=== PATIENT | male | born 1940 | race Caucasian/White ===

== ENCOUNTER 2016-10-05 10:16 | Inpatient (IN) | payer MEDICARE ==
[~2016-10-05] VITALS: Ht 167.6 cm; Wt 64.3 kg
[2016-10-05] VITALS (9 sets, daily range): BP systolic 120–146; BP diastolic 58–99; PULSE 66–97; RESP 18–25; O2SAT 92–94
[~2016-10-05 10:16] MED LIST: ADV250INH IH; ALBU18HF INH; ALBU2.5V4 NEB; Diltiazem Hcl PO; FUR20 PO; LEVO500T79 PO; Metoprolol Tartrate PO; POTA10TA14 PO; TAMS0.4C98 PO; TIOT18CA3 IH; WARF5TAB PO
--- NOTE | 2016-10-05 10:46 | ED.REPORT ---
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 Patient was seen by his PCP yesterday for symptoms, and reports that he is unable to walk today. He states that symptoms originated in his feet, and have spread up his legs and into his arms and hands, with numbness of the hands bilaterally. Patient denies shortness of breath, and visual disturbances. He also mentions a foreign body sensation in his throat. Nursing Notes Stated Complaint: NEAR SYNCOPE, AORTIC STENOSIS Chief Complaint: General Complaint Nursing Notes Reviewed: Yes Allergies: Coded Allergies: No Known Allergies (Verified Allergy, Unknown, 10/05/16) Scheduled ([Diltiazem Hcl]) 240 MG CAP.ER.24H 240 MG PO BID ([Metoprolol Tartrate]) 50 MG TABLET 50 MG PO BID Digoxin (Digoxin) 125 Mcg Tablet 125 MCG PO DAILY Fluticasone/Salmeterol (Advair 250-50 Diskus) 60 Puff/Inh Disk 1 PUFF IH BID Furosemide (Furosemide) 20 Mg Tab 40 MG PO DAILY Levofloxacin (Levofloxacin) 500 Mg Tablet 500 MG PO DAILY Potassium Chloride ER (Klor-Con M10) 10 Meq Tab.er.prt 10 MEQ PO DAILYWM Prednisone (PredniSONE) 20 Mg Tablet 20 MG PO BID Tamsulosin (Flomax) 0.4 Mg Capsule 0.4 MG PO DAILY Tiotropium [place] (Spiriva) 18 Mcg Cap.w.dev 1 PUFF IH DAILY Tiotropium [place] (Spiriva) 18 Mcg Cap.w.dev 18 IH DAILY Warfarin Sodium (Coumadin) 5 Mg Tablet 5 MG PO 17 Scheduled PRN Albuterol Neb Soln (Albuterol Neb Soln) 2.5 Mg/3 Ml Vial.neb 2.5 MG IH PRN For Shortness of Breath Albuterol Sulfate (Ventolin HFA Inhaler) 200 Puff/18 Gm Inhaler 2 PUFF INH Q4 PRN PRN For Wheezing Miscellaneous Medications Olodaterol HCl (Striverdi Respimat) 4 Gm Mist.inhal 2.5 MCG IH General Time Seen by MD: 10:46 Chief Complaint Weakness Hx Obtained From: Patient, Spouse Arrived By: Ambulance Sudden in Onset?: No Onset Occurred: 1 week ago (7-10 days) Symptom Duration: Since onset Associated with: Denies: Shortness of breath, Vision change Pertinent Negative: Pt denies other symptoms Similar Sx Previous: Yes Past Medical History Past Medical History Notes: PCP: Dr Hylton Past Medical History 1. Paroxysmal atrial fibrillation. 2. COPD. 3. Pulmonary hypertension. 4. Tachybrady syndrome. 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 Past Surgical History Lumbar diskectomy Pacemaker Smoking History Former Smoker Social History Alcohol Use: Denies alcohol use Drug Use: Denies drug use Other Social History: Good social support, , Local resident Ambulatory Status Walker Review of Systems Full Review of Systems Constitutional: Denies: Chills, Fever Respiratory: Denies: Shortness of breath Cardiovascular: Denies: Chest pain Neurologic: Reports: Numbness (Hands, bilaterally), Problem walking, Weakness, Denies: Change LOC, Confusion, Headache, Lightheaded, Slurred speech, Syncope , Unable to speak, Vision change Complete sys rev & neg: except as marked. Physical Exam Vital Signs Vital Signs Date Time Temp Pulse Resp B/P Pulse Ox O2 Delivery O2 Flow Rate FiO2 10/05/16 10:25 36.3 66 19 142/74 92 Nasal Cannula 2 10/05/16 10:20 67 19 142/74 92 Room Air 2 Initial VS: Reviewed General/Constitutional: Well-developed, Well-nourished Head / Eyes: Atraumatic, Normocephalic Neck: Supple, Non-tender, Full range of motion Abdomen / GI: Soft, Non-tender, No guarding, No rebound, No distention Skin: Warm, Dry, No cyanosis Psychiatric: Mood/affect normal, Behavior normal, Normal thought content Respiratory / Chest: Breath sounds NL, No respiratory distress, No rales, No rhonchi, No wheezing Cardiovascular: Heart rate NL, Regular rhythm, Heart sounds NL, Cap refill not delayed, Peripheral circulation NL Neurologic: Oriented X3, Speech NL Reflex Abnormality: Positive: Diffusely absent 3/5 strength with toe flexion 4/5 strength with plantar- and dorsiflexion 4/5 strength with knee flexion/extension 4/5 strength with hip flexion 4/5 strength with french translator, biceps, and triceps Parasthesias of feet and hands, symmetrically Interpretation & Diagnostics Lab Results Interpretation Result Diagram: 2/17/17 1132 ECG Interpretation ECG Interpretation: Sinus rhythm, rate 66 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 Will be admitted on IVIG. Discussed with neurology. We will go to ICU. Source of Hx: Old records Time of Eval: 11:08 Re-Evaluation/Progress Note: Completed physical examination and updated patient on the plan of care. Consultation #1: Referral / Consult Name: Nany Reilly MD Consulted With: Neurology Call Returned at: 11:23 Note: Discussed patient case with Dr. Reilly, Neurology. Get records. Start 0.4mg/kg IVIG, Gamunex. Cervical, thoracic, and lumbar MRI with and without contrast. FVC/nif q shift. Consultation #2: Referral / Consult Name: Marshall Bernard MD Consulted With: Hospitalist Call Returned at: 11:40 Intermission Coordinator: Agrees with plan Note: will admit Consultation #3: Referral / Consult Name: Elvis Hylton MD Consulted With: Primary care physician Call Returned at: 11:51 Counseled Regarding: Diagnosis, Lab results, Need for admission Discharge & Departure Primary Impression: CIDP (chronic inflammatory demyelinating polyneuropathy) Disposition: ADMITTED TO HOSPITAL Discharge Condition All VS Reviewed: Yes Condition: Stable Referrals: Elvis Hylton MD (PCP) Crit Care Except Billable Proc Time Spent: 30-74 minutes Services Performed: Patient management by me, Time spent at bedside, Reviewing test results Critical Care Notes: See MDM Scribe Attestation Portions of this note were transcribed by Solis Wheeler. I, Dr. De La Torre, personally performed the history, physical exam and medical decision-making; I reviewed and confirmed the accuracy of the information in the transcribed note. Signed by: Macey Schaeffer, 10/05/2016 and 11:51 copies to: Elvis Hylton MD, Timothy S DO Oct 05, 2016 10:46 SOLIS WHEELER Oct 05, 2016 11:02
[2016-10-05 11:52] LABS: Mean Corpuscular Hemoglobin 29.2 pg (27.0-35.0); Platelet Count 303 bil/L (150-400)
[2016-10-05] MEDS ORDERED: Ondansetron 2 mg/mL 2 mL Inj IVPUSH PRN ×2 (11:55→15:00)
[2016-10-05] MEDS ORDERED: Alum-Mag Hydrox-Simeth 30 mL Suspension PO PRN ×2 (11:55→15:00)
[2016-10-05 12:01] LABS: INR 2.13 ratio
[2016-10-05] MEDS ORDERED: IVIG per Pharmacy (Initial) XX ONE (12:10)
[2016-10-05 12:13] LABS: Magnesium 2.3 mg/dL (1.6-2.6)
[2016-10-05] MEDS ORDERED: OLOD4MIS2 IH (12:51)
[2016-10-05] MEDS ORDERED: TIOT18CA3 IH (12:51)
[2016-10-05] MEDS ORDERED: PRE20 PO (12:54)
[2016-10-05] MEDS ORDERED: DIGO125T73 PO (12:54)
--- NOTE | 2016-10-05 13:18 | DRSVH ---
PROCEDURE: X-RAY CHEST ONE VIEW, PORTABLE ([id number]) INDICATIONS: generalized weakness TECHNIQUE: One view of the chest was acquired. COMPARISON: [facility], CR, XR CHEST 2VW, 08/23/2016, 11:54. FINDINGS: Surgical changes and devices: Dual-lead cardiac pacer Lungs and pleura: No pleural effusions or pneumothorax. Lungs are clear. Scattered scarring/atelec tasis with unchanged appearance Mediastinum: Mediastinal contours appear normal. Heart size is normal. Bones and chest wall: No suspicious bony lesions. Overlying soft tissues appear unremarkable. Machine Whitener silvina left clavicle fracture IMPRESSION: No acute disease Dictated by: James Ware M.D. on 10/05/2016 at 13:15 Approved by: James Ware M.D. on 10/05/2016 at 13:16
[2016-10-05 13:31] LABS: BASOPHILS % (AUTO) 0 % (0-3); EOSINOPHILS % (AUTO) 0 % (0-5); MONOCYTES % (AUTO) 6 % (4-12); NEUTROPHILS % (AUTO) 85 % (40-74)
[2016-10-05] MEDS: GAMUNEX C IV SCH ×2 (14:41)
[2016-10-05] MEDS ORDERED: Albuterol 1.25 mg/3 mL Inhalation Solution NEB PRN (15:00)
[2016-10-05] MEDS ORDERED: Polyethylene Glycol (PEG) 17 Gm Powder PO PRN (15:00)
--- NOTE | 2016-10-05 15:02 | CONS ---
[address] [address] CONSULTATION REPORT PATIENT: YASEMIN ZAFAR : 1940 MR#: [id number] ADMIT: 10/05/2016 JOB ID: [id number] DATE OF SERVICE: 10/05/2016 NEUROLOGICAL CONSULTATION: REQUESTING PHYSICIAN: Dr. Prerna Johnson and Dr. 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 HISTORY OF PRESENT ILLNESS: The patient is a 76-year-old gentleman with history of Guillain-Slinger two years ago which began with ascending numbness and weakness eventually affecting his arms and legs. Today the gentleman presents to the emergency department with acute onset of weakness, unable to walk following a 3-day history of rapidly ascending numbness and weakness. He reports that he had an upper respiratory tract infection prior to the onset of symptoms two years ago and over the last several weeks he has been struggling with a respiratory tract infection. He also has COPD and is followed closely by his primary care physician, Dr. Ajay Hylton, who initially thought the patient's virus was responsible for his symptoms. He reports that he has been on oral prednisone for COPD and as of yesterday possibly CIDP. This morning when he found he was unable to walk, he told his to call 911 and he was transported to [facility] emergency department. I was contacted by Dr. De La Torre for recommendations regarding etiology and treatment of his symptoms. Dr. De La Torre and the patient both inform me that he was transferred to [facility] two years ago diagnosed with Guillain-Slinger syndrome. The patient recalls receiving five days of IVIG and having almost complete resolution of symptoms at the time of discharge. He did report residual numbness and tingling in his fingers and toes. He reports that he tolerated the IVIG without any difficulty. He has had no recurrence of symptoms until now. The patient advises me that several things are different than the last time event; although the ascension is similar, he did not have speech problems or hoarseness which he has now and he also did not experience as profound of weakness. Chest x-ray done today did not show any acute changes or evidence to suggest pneumonia. The patient denies any diarrheal illness. He was able to urinate this morning but has not urinated since. He does not feel the urge to do so. He advises me that he is on home O2 at 2 L nasal cannula, which is the current amount he is receiving now. He does not feel as if he has any additional respiratory distress over his baseline. PAST MEDICAL HISTORY: 1. Atrial fibrillation, on chronic warfarin followed by Dr. Cuellar in [place]. 2. COPD. 3. Pulmonary hypertension. 4. Tachybrady syndrome. 5. History of Guillain-Slinger. 6. Hypertension. PAST SURGICAL HISTORY: 1. Pacemaker. 2. Lumbar diskectomy. 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 Lives with his and is a former smoker. He admits to moderate alcohol. He has lived in the area his entire life. FAMILY HISTORY: The patient reports that his father with cancer of unknown type. Mother had no known illnesses and his siblings have no neurologic disorders that he is aware of. HOME MEDICATIONS: 1. Diltiazem. 2. Metoprolol. 3. Digoxin. 4. Advair. 5. Furosemide. 6. Levofloxacin. 7. Potassium. 8. Prednisone 20 mg two times daily. 9. Flomax. 10. Spiriva. 11. Warfarin. 12. Nebulizers for shortness of breath. 13. Albuterol for shortness of breath. DRUG ALLERGIES: No known drug allergies. REVIEW OF SYSTEMS: As per the history of present illness. All other systems were reviewed and reported as negative. PHYSICAL EXAMINATION: The patient is a pleasant and cooperative well-groomed gentleman in no apparent distress resting comfortably in his bed. Vital signs: Blood pressure mildly elevated 144/73, heart rate 72, pulse oximetry 94% on 2 L nasal cannula. He is afebrile. Head: Normocephalic, atraumatic. No evidence of carotid bruits. Lungs: Clear to auscultation. Cardiac: Regular rate and rhythm. S1, S2 present. Extremities: No edema or lesions noted in the lower extremities. Skin and pedal pulses appear to be intact. NEUROLOGIC EXAMINATION: The patient is alert and oriented with language and speech intact and fluent with exception of with some nasal quality. Mood is euthymic. Cranial nerves: Pupils equally reactive to light and accommodation with extraocular movements intact. No ptosis seen. Upward gaze of 30 seconds does not elicit ptosis. No diplopia on any gaze version. Visual jefferson appear to be intact bilaterally. No facial asymmetry. Sensation intact to touch bilaterally. Tongue midline. Palate raises symmetrically. SCM and shoulder shrug, as well as hearing appear to be intact bilaterally. Motor strength: Proximal motor strength intact. Distal strength shows 4-5 dorsiflexor and lobsterman weakness. 10 sec leg raise without drift, upper limited by IV and BP cuff. Tone: Intact upper and lower extremities. Deep tendon reflexes: Not elicited. Plantar reflex mute. Sensation: Diminished pinprick to the dorsum of the foot bilaterally. Diminished vibratory sensation to approximately 3 seconds in the lower extremities. Upper extremities appear to be intact but diminished pinprick in the tips of the fingers. Coordination: Intact finger to nose, heel to claudio, and rapid alternating movement. Gait: Not requested due to weakness and falls. LABORATORY STUDIES: Hemoglobin and hematocrit 11.9/35.9, white count elevated 18.2. CMP: Glucose elevated 184, BNP 544. Please see chart for additional laboratory studies. RADIOLOGIC STUDIES: Chest x-ray as above. ASSESSMENT AND RECOMMENDATIONS: The patient is a 76-year-old gentleman with subacute onset of weakness and ascending paresthesias with history of Guillain-Slinger syndrome two years ago with incomplete resolution of symptoms. The patient's neurologic examination shows distal weakness and sensory loss. The patient reports speech problems. There are no clinical findings to suggest myasthenia gravis. He does not have a family history of neuromuscular disease or symptoms. His symptoms and presentation are more consistent with CIDP. It is possible that the patient has a second occurrence of Guillain-Slinger but more likely that he is experiencing CIDP. However, I cannot eliminate the possibility of worsening presentation of residual GBS symptoms due to another cause. He has elevated glucose and white count likely secondary to prednisone. Myelocytes are present. He is also experiencing a viral infection by his report. I recommend monitoring the patient closely for progression of ascending weakness given his speech problems with concern for respiratory failure. The patient should be admitted to the ICU for close surveillance given the concern of impending respiratory failure with speech involvement and given the concern of GBS. I recommended Gamunex IVIG 0.4 g/kgper day over 4-5 days. If the patient does improve enough to ambulate, he can be discharged home with home IVIG. If he fails to resolve symptoms or if symptoms progress, transfer to a center that can perform plasma exchange is recommended. It appears that he did respond to IVIG during the last episode. Certitude of diagnosis will require observation and electrophysiologic studies as an outpatient. It will be helpful to have the records from his last hospitalization at [facility] to review from his hospitalization two years ago. Those records should be requested along with all laboratory studies, the results of his LP and in imaging studies. Unfortunately imaging studies with MRI are prohibited due to his pacemaker. Recommend PT/ OT and correction of hyperglycemia. I will continue to follow with you. Thank you for this consultation. SARAY
[2016-10-05 15:19] LABS: APPEARANCE,URINE HAZY (CLEAR,HAZY); COLOR,URINE STRAW (YELLOW); OCCULT BLOOD,URINE NEGATIVE (NEGATIVE); UROBILINOGEN,URINE NORMAL (NORMAL)
--- NOTE | 2016-10-05 15:39 | NUR ---
Admit to CCU Admit at 1430. AAOx4. Tolerating IVIG. BLEs weak L>R. Baseline numbness to feet and tips of fingers. SpO2 92-95% on 2L NC, uses 2L NC at home. Afebrile. Paced 70s-80s.
[2016-10-05] MEDS: Albuterol-Ipratropium 3 mL Inhalation Solution NEB SCH ×2 (16:20→20:30)
--- NOTE | 2016-10-05 16:29 | PCM.HPMED ---
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 Patient reports that he has been getting progressively weaker, and is now unable to walk today. He also mentions a foreign body sensation in his throat. He denies headache, visual disturbances, confusion, lightheadedness, fainting, or facial droop. He reports he had a recent upper respiratory tract infection over the last few weeks. He also reports he has chronic dyspnea on exertion associated with his COPD, which has been getting worse over the last month, with coughing and wheezing. He states he has been too weak to cough up sputum. His dyspnea has been worsening to the point that he could barely walk across a room without becoming significantly short of breath. He is unsure if he has orthopnea but states he sleeps in a recliner. He does report paroxysmal nocturnal dyspnea. He denies lower extremity edema. In the ED, BP was 144/73, O2 was 94 on 2L NC. WBC 18.2, Hb 11.9, glucose 184, BNP 540. He was started on IVIG per Dr. Reilly. He was recommended to have a cervical, thoracic, and lumbar MRI but was unable to do so because of his pacemaker. Review of Systems: Comprehensive review of systems conducted and was negative except for the pertinent positives listed above. Allergies Coded Allergies: No Known Allergies (Verified Allergy, Unknown, 10/05/16) Home Medications Albuterol neb and inhaler Digoxin 125 mcg daily Advair inhaler Furosemide 40 mg daily Olodaterol inhaler Potassium chloride 10 meq daily Prednosione 20 mg BID Tamsulosin 0.4 mg daily Spiriva inhaler Warfarin 4 mg daily Diltiazem 240 mg BID Metoprolol tartrate 50 mg BID PMH 1. Paroxysmal atrial fibrillation. 2. COPD. 3. Pulmonary hypertension. 4. Tachy-gio syndrome. 5. History of Guillain-Paradox 6. Hypertension Surgical History Lumbar diskectomy Pacemaker Family History Father - of unknown cancer No other relevant family history Social History Hx Alcohol Use: Yes (occasionally/social) Hx Substance Use: No Hx Tobacco Use: Yes Smoking Status: Former Smoker Exam Vital Signs Vital Sign - Last Date Time Temp Pulse Resp B/P Pulse Ox O2 Delivery O2 Flow Rate FiO2 10/05/16 13:03 36.4 72 18 144/73 94 Nasal Cannula 2.00 Exam General: Alert, Oriented X3, Cooperative, Appears to be mildly short of breath. Generalized weakness. Head: Normocephalic, atraumatic. External ears normal. Eyes: PERRLA, EOMI. Anicteric sclerae. Mouth: Mouth Normal, Mucous Membranes Moist/[place] Neck: Neck supple with full range of motion. Chest & Lungs: Clear to auscultation bilaterally with no crackles, wheezes, or rhonchi. Cardiovascular: Regular Rate/Rhythm, Normal S1, Normal S2, No Murmurs/Rubs/ Gallops Abdomen: Non-tender, Non-distended, No masses, Normoactive bowel tones, Soft Musculoskeletal: Normal Range of Motion Extremities: No cyanosis/clubbing/edema bilaterally Neurological: Normal Speech. Cranial Nerves 2-12 Intact. Proximal strength normal. Distal hand weakness with patent examiner strength, wrist flexion/extension. Distal lower extremity weakness with decreased foot dorsiflexion and plantarflexion bilaterally. Diminished sensation on bilateral hands up to wrist and feet up to ankles symmetrically. Patellar reflex absent bilaterally. 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 Admitted for chronic inflammatory demyelinating polyneuropathy and COPD exacerbation. 1. Chronic inflammatory demyelinating polyneuropathy. Present on admission. Active - Pt with a history of GBS 2 years ago presents with weakness and paresthesias onset over 2 weeks. He has distal weakness and paresthesias in upper and lower extremities. 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 He previously responded well to IVIG without any problems, so we will repeat his treatment. Per Dr. Reilly's recommendations, we will monitor closely for signs of respiratory failure, as well as autonomic problems such as fluctuations in blood pressure and heart rate. MRI was indicated but unable to perform due to pacemaker. - Dr. Reilly of Neurology has been consulted. We appreciate her input. - Gamunex 0.4 g/kg per day over 4-5 days. - Will check post void residual with bladder scan to rule out bladder involvement. - Physical therapy and occupational therapy ordered - Requesting records of prior admit at [facility] 2. COPD exacerbation. Present on admission. Active. - Pt presents with progressive shortness of breath on exertion, coughing, and wheezing. He is on 2L home O2. Currently satting 94 on 2L. CXR showed no acute disease. - Duoneb q6hwa - Albuterol neb q2h PRN - Continue home prednisone 20 mg daily - Hold home inhalers 3. Hyperglycemia, acute. Present on admission. Active. - Glucose 184 on admission. Likely secondary to chronic steroid use. No prior history of diabetes. - A1c ordered - Humalog low dose correctional scale. 4. Leukocytosis, acute. Present on admission. Active. - WBC 18.2 on admission. Likely secondary to steroid use. CXR and UA negative, pt denies fever or chills. - Will continue to monitor at this time. 5. Paroxysmal atrial fibrillation, chronic. - Pt in NSR on EKG. - Continue home digoxin, diltiazem, metoprolol, warfarin 6. Hypertension, chronic - Continue home furosemide and KCl 7. Benign prostatic hypertrophy, chronic. - Continue home tamsulosin 8. Other Chronic Conditions - Pulmonary hypertension. - Tachy-gio syndrome. - History of Guillain-Paradox - Bowel regimen as needed - Antiemetic as needed Disposition: Patient will be monitored for pulmonary or autonomic complications for at least 2 days. If the patient does improve enough to ambulate, he can be discharged home with home IVIG and outpatient workup with neurology. If he fails to resolve symptoms or if symptoms progress, we will transfer him to a center that can perform plasma exchange. INPATIENT: Patient is admitted under inpatient status with expected length of stay greater than 2 midnights due to severity of presenting symptoms, risk of adverse event, and complexity of treatment plan. Pain Evaluation: Adequate Pain Control Resuscitation Status: CPR: Attempt Resuscitation Time spent 45 minutes Attending Statement Patient seen and examined with house staff. Agree with all attached documentation. Gideon Sawyer Oct 05, 2016 14:57 Marshall Bernard MD Oct 05, 2016 18:15
--- NOTE | 2016-10-05 17:15 | NUR ---
1500- UPON ARRIVAL TO 2012 BASELINE NIF AND FVC DONE. NIF> -40, FVC 1.5L. PT. ON 1 LPM 94%, , BS COARSE.
[2016-10-06] VITALS (14 sets, daily range): BP systolic 119–155; BP diastolic 59–108; PULSE 60–89; RESP 11–20; O2SAT 91–97
[2016-10-06] MEDS: Diltiazem CD 240 mg ER24 Capsule PO SCH ×3 (01:19→20:11)
[2016-10-06 03:08] LABS: BASOPHILS % (AUTO) 0.2 % (0-3); EOSINOPHILS % (AUTO) 1.4 % (0-5); Mean Corpuscular Hemoglobin 29.1 pg (27.0-35.0); Mean Corpuscular Volume 88.1 fL (81-100); NEUTROPHILS % (AUTO) 73.5 % (40-74); Platelet Count 317 bil/L (150-400)
--- NOTE | 2016-10-06 04:48 | NUR ---
Neuro / comfort No changes in muscle strength during shift. Patient continues to have weak lower extremities with some numbness in the feet and hands. Denies any loss of core strength. Patient able to turn self independently in bed, requesting pillow positioning at times. Patient able to sit at the edge of the bed. Patient remains alert and oriented. Unable to sleep. Complains of discomfort at times but denies offer of Tylenol for most of the shift.
[2016-10-06] MEDS: predniSONE 20 mg Tablet PO SCH ×2 (08:17→20:11)
--- NOTE | 2016-10-06 09:52 | NUR ---
Neuro/pain/speech Continues complaints of tingling & decreased sensation in bilateral hands and feet. Numbness/tingling extending up right leg to mid-thigh. Drift noted in bilateral upper and lower extremities. Leaning to right. Voice hoarse, cough noted with oral intake. ST evaluation ordered. Loose cough, nonproductive. Lungs diminished, coarse on RLL. Right flank pain reported this AM, PRN morphine administered with relief.
[2016-10-06] MEDS: Albuterol-Ipratropium 3 mL Inhalation Solution NEB SCH ×3 (11:22→22:09)
--- NOTE | 2016-10-06 11:24 | NUR ---
Evaluation completed. Please go to "Notes" then click on "Assessments and Notes" (bottom left corner of screen). Then select appropriate discipline tab on top of screen.
--- NOTE | 2016-10-06 12:36 | NUR ---
NUTRITION ASSESSMENT: ASSESS:76 YO male admitted following approximately 2 weeks of progressively worsening weakness in bilateral upper and lower extremities, as well as numbness progressing from his fingertips up to his wrists and from his toes up to his ankles symmetrically. Patient reports that he has been getting progressively weaker, and is now unable to walk today. He also mentions a foreign body sensation in his throat. He denies headache, visual disturbances, confusion, lightheadedness, fainting, or facial droop. He reports he had a recent upper respiratory tract infection over the last few weeks. Pt. admitted with chronic inflammatory demyelinating polyneuropathy and COPD exacerbation. Speech Therapy evaluated patient today and was only able to advance diet to stimulation texture, no liquids. PMHx:Paroxysmal atrial fibrillation, COPD, pulmonary HTN, tachy-gio syndrome, Guillain-[place], HTN. DIET:Stimulation, no liquids. PO intake not yet recorded. LABS: Reviewed. Chloride 92, CO2 35, Glu 114. MEDICATIONS: Reviewed. Lasix, prednisone, lopressor. NUTRITION FOCUSED PHYSICAL ASSESSMENT: GI symptoms / stool: No stool reported.Rupesh: 16. Skin Integrity: No issues reported. ANTHROPOMETRICS: Current Wt: 65.4 kg.BMI: 23.0 kg/m2. 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 2)Inadequate oral intake related to inability to consume sufficient energy, as evidenced by requirement for significantly modified diet texture per ST order. INTERVENTION: 1) Once diet advanced, will add high protein supplements to trays. 2) This patient has a low threshold for intubation. In the event pt. requires intubation over weekend, recommend consider enteral feeding. MONITOR/EVALUATE: Diet advance / tolerance, PO intake, labs, GI/nutrition status. Follow up per high nutrition risk guidelines.
--- NOTE | 2016-10-06 12:51 | NUR ---
Evaluation completed. Please go to "Notes" then click on "Assessments and Notes" (bottom left corner of screen). Then select appropriate discipline tab on top of screen.
--- NOTE | 2016-10-06 14:32 | NUR ---
Social Work: Assessment D&A: See initial assessment. 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 Pt primary insurance is [employer]; PCP is Len Hylton MD. Pt readmit score has not yet been assessed. BIOINFORMATICIST met with pt and at bedside and explained BIOINFORMATICIST role. Pt reports that he is from home with his in a 5th wheel with 4 external steps and 2 internal steps. Pt is "I" at base and does not use DME to ambulate. Pt endorses hx at [facility] and emphatically reports an unwillingness to return to this or any other SNF. Pt intends to d/c home with via POV. Pt drives and does not require a caregiver. No social work needs apparent. Advanced directive info provided. P: Pt likely to d/c home with family via POV. BIOINFORMATICIST will continue to follow for additional needs. INGRID Boone Addendum: 10/06/16 at 1440 by MARY TORRES Amended: Links added.
[2016-10-06] MEDS: GAMUNEX C IV SCH ×2 (16:45)
--- NOTE | 2016-10-06 17:17 | PCM.PNMED ---
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 Patient reports that he has been getting progressively weaker, and is now unable to walk today. He also mentions a foreign body sensation in his throat. He denies headache, visual disturbances, confusion, lightheadedness, fainting, or facial droop. He reports he had a recent upper respiratory tract infection over the last few weeks. He also reports he has chronic dyspnea on exertion associated with his COPD, which has been getting worse over the last month, with coughing and wheezing. He states he has been too weak to cough up sputum. His dyspnea has been worsening to the point that he could barely walk across a room without becoming significantly short of breath. He is unsure if he has orthopnea but states he sleeps in a recliner. He does report paroxysmal nocturnal dyspnea. He denies lower extremity edema. Overnight events: Patient had one event of choking or aspirating on water with follow-up regurgitation of water out of his nostrils. An new onset hoarseness. Complains of mild right-sided chest pain Today: Patient seemed weaker than before. His face was markedly hoarse compared the day before. His coordination was diminished from day before with difficulty and [id number] touches. He has slight cough. He remains on 3 L nasal cannula. He denies headache, nausea, vomiting, change in vision, shortness of breath, chest pain, abdominal pain, constipation, diarrhea. Exam Vital Signs Vital Sign - Last Date Time Temp Pulse Resp B/P Pulse Ox O2 Delivery O2 Flow Rate FiO2 10/06/16 11:22 60 16 91 Nasal Cannula 3.00 10/06/16 08:30 155/62 10/06/16 03:01 36.4 Intake and Output 10/05/16 10/05/16 10/06/16 Cumulative From/Thru 15:00 23:00 07:00 10/05/16 10:25 - 10/06/16 06:20 Intake Total 270 ml 300 ml 570 ml Output Total 300 ml 925 ml 1225 ml Balance -30 ml -625 ml -655 ml Intake Oral 300 ml 300 ml IV Total 270 ml 270 ml Output Urine Total 300 ml 925 ml 1225 ml Exam General: Alert, Oriented X3, Cooperative, Appears to be mildly short of breath. Generalized weakness. Head: Normocephalic, atraumatic. External ears normal. Eyes: PERRLA, EOMI. Anicteric sclerae. Mouth: Mouth Normal, Mucous Membranes Moist/[place] Neck: Neck supple with full range of motion. Chest & Lungs: Clear to auscultation bilaterally with no crackles, wheezes, or rhonchi. Cardiovascular: Regular Rate/Rhythm, Normal S1, Normal S2, No Murmurs/Rubs/ Gallops Abdomen: Non-tender, Non-distended, No masses, Normoactive bowel tones, Soft Musculoskeletal: Normal Range of Motion Extremities: No cyanosis/clubbing/edema bilaterally Neurological: Normal Speech. Cranial Nerves 2-12 Intact. Proximal strength normal. Distal hand weakness with pai gow dealer strength, wrist flexion/extension. Distal lower extremity weakness with decreased foot dorsiflexion and plantarflexion bilaterally. Diminished sensation on bilateral hands up to wrist and feet up to ankles symmetrically. Patellar reflex absent bilaterally. 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 Admitted for chronic inflammatory demyelinating polyneuropathy and COPD exacerbation. 1. Chronic inflammatory demyelinating polyneuropathy. Present on admission. Active - Pt with a history of GBS 2 years ago presents with weakness and paresthesias onset over 2 weeks. He has distal weakness and paresthesias in upper and lower extremities. 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 He previously responded well to IVIG without any problems, so we will repeat his treatment. Per Dr. Reilly's recommendations, we will monitor closely for signs of respiratory failure, as well as autonomic problems such as fluctuations in blood pressure and heart rate. MRI was indicated but unable to perform due to pacemaker. - Will check post void residual with bladder scan to rule out bladder involvement. - Physical therapy and occupational therapy ordered - Requesting records of prior admit at [facility] - Dr. Reilly of Neurology has been consulted. We appreciate her input. - Gamunex 0.4 g/kg per day over 4-5 days. (1st dose given 10/05) - Speech evaluation noted - patient is at moderate aspiration risk with vocal cord weakening and decreased cough ability. Diet changed to crushed food and ice chips. 2. COPD exacerbation. Present on admission. Active. - Pt presents with progressive shortness of breath on exertion, coughing, and wheezing. He is on 2L home O2. Currently satting 94 on 2L. CXR showed no acute disease. - Duoneb q6hwa - Albuterol neb q2h PRN - Continue home prednisone 20 mg daily - Hold home inhalers 3. Hyperglycemia, acute. Present on admission. Active. - Glucose 184 on admission. Likely secondary to chronic steroid use. No prior history of diabetes. - A1c - Humalog low dose correctional scale. 4. Leukocytosis, acute. Present on admission. Active. - WBC 18.2 on admission. Likely secondary to steroid use. CXR and UA negative, pt denies fever or chills. - Will continue to monitor at this time. 5. Paroxysmal atrial fibrillation, chronic. - Pt in NSR on EKG. - Continue home digoxin, diltiazem, metoprolol, warfarin 6. Hypertension, chronic - Continue home furosemide and KCl 7. Benign prostatic hypertrophy, chronic. - Continue home tamsulosin 8. Other Chronic Conditions - Pulmonary hypertension. - Tachy-gio syndrome. - History of Guillain-[place] - Bowel regimen as needed - Antiemetic as needed Disposition: Patient will be monitored for pulmonary or autonomic complications for at least 2 days. If the patient does improve enough to ambulate, he can be discharged home with home IVIG and outpatient workup with neurology. If he fails to resolve symptoms or if symptoms progress, we will transfer him to a center that can perform plasma exchange. INPATIENT: Patient is admitted under inpatient status with expected length of stay greater than 2 midnights due to severity of presenting symptoms, risk of adverse event, and complexity of treatment plan. Pain Evaluation: Adequate Pain Control Resuscitation Status: CPR: Attempt Resuscitation Time spent 30 min Attending Statement Patient seen and examined with house staff. Agree with all attached documentation. JAKE LUQUE DO Oct 06, 2016 11:35 Marshall Bernard MD Oct 07, 2016 07:35
--- NOTE | 2016-10-06 18:13 | PCM.CONPHA ---
Subjective Date of Service: Oct 06, 2016 Weakness, numbness, shortness of breath Reason for Pharmacy Consult: Anticoagulation Management Objective Vital Signs Date Time Temp Pulse Resp B/P Pulse Ox O2 Delivery O2 Flow Rate FiO2 10/06/16 17:25 36.4 77 14 130/63 96 Nasal Cannula 3.00 10/06/16 17:10 36.4 79 15 128/59 95 Nasal Cannula 3.00 10/06/16 16:55 36.5 74 18 125/63 94 Nasal Cannula 3.00 10/06/16 16:40 36.5 70 16 119/65 95 Nasal Cannula 3.00 10/06/16 16:26 73 16 97 Nasal Cannula 3.00 10/06/16 16:13 Supplement Oxygen 10/06/16 16:13 67 10/06/16 16:11 36.5 84 19 119/71 93 Nasal Cannula 3.00 10/06/16 12:06 36.3 69 20 119/60 93 Nasal Cannula 10/06/16 12:04 Supplement Oxygen 10/06/16 11:22 60 16 91 Nasal Cannula 3.00 10/06/16 08:30 67 18 155/62 93 Nasal Cannula 4.00 10/06/16 08:29 Supplement Oxygen 10/06/16 08:17 67 10/06/16 03:45 Supplement Oxygen 10/06/16 03:01 36.4 72 11 146/68 93 Nasal Cannula 3.00 10/06/16 00:00 Supplement Oxygen 10/05/16 23:15 36.5 97 25 145/69 93 Nasal Cannula 2.00 10/05/16 19:53 36.4 78 18 146/58 93 Nasal Cannula 2.00 10/05/16 19:45 Supplement Oxygen Intake and Output 10/04/16 10/05/16 10/06/16 00:00 00:00 00:00 Intake Total 270 ml Output Total 300 ml Balance -30 ml Weight (Kilograms): 65.400 Height (Feet): 5 Height (Inches): 6.00 Test 10/05/16 11:32 10/05/16 15:06 10/06/16 02:50 Metamyelocytes % 1% (0-0) Myelocytes % 3% (0-0) Prothrombin Time 23.2sec (8.1-12.5) Prothromb Time International Ratio 2.13ratio Magnesium Level 2.3mg/dL (1.6-2.6) Pro-B-Type Natriuretic Peptide 544.6pg/mL (0-486) Hold [place] Top Tube Received (Received) Urine Color Straw (YELLOW) Urine Appearance Hazy (CLEAR,HAZY) Urine pH 7.0 (5.0-8.0) Urine Specific [place] 1.015 (1.003-1.035) Urine Protein Negativemg/dL (NEG,TRACE) Urine Glucose (UA) Negativemg/dL (NEGATIVE) Urine Ketones Negativemg/dL (NEGATIVE) Urine Occult Blood Negative (NEGATIVE) Urine Nitrite Negative (NEGATIVE) Urine Bilirubin Negative (NEGATIVE) Urine Urobilinogen Normalmg/dL (NORMAL) Urine Leukocyte Esterase Negative (NEGATIVE) Urine RBC 0-2/hpf (0-2) Urine WBC 0-5/hpf (0-5) Urine Epithelial Cells Occasional/hpf (NONE-MOD) Urine Crystals None seen (NONE SEEN) Urine Bacteria None/hpf (NONE-FEW) Urine Hyaline Casts None/lpf (NONE) Urine Granular Casts None seen (NONE SEEN) Urine Waxy Casts None seen (NONE SEEN) Urine Red Blood Cell Casts None seen (NONE SEEN) Urine White Blood Cell Casts None seen (NONE SEEN) Urine Mucus None seen (None Seen) Urine Trichomonas None seen (NONE SEEN) Urine Yeast None (NONE SEEN) Urinalysis Comment None Urine Culture Reflexed Not indicated White Blood Count 18.0th/mm3 (3.8-10.1) Red Blood Count 3.88mil/mm3 (4.40-5.80) Hemoglobin 11.3g/dL (13.8-17.2) Hematocrit 34.2% (41.0-50.0) Mean Corpuscular Volume 88.1fL (81-100) Mean Corpuscular Hemoglobin 29.1pg (27.0-35.0) Mean Corpuscular Hemoglobin Concent 33.0% (32.0-37.0) Red Cell Distribution Width 15.3% (12.3-15.4) Platelet Count 317bil/L (150-400) Neutrophils (%) (Auto) 73.5% (40-74) Lymphocytes (%) (Auto) 10.2% (14-46) Monocytes (%) (Auto) 9.0% (4-12) Eosinophils (%) (Auto) 1.4% (0-5) Basophils (%) (Auto) 0.2% (0-3) Sodium Level 137mEq/L (134-144) Potassium Level 3.8mEq/L (3.5-5.2) Chloride Level 92mEq/L (97-108) Carbon Dioxide Level 35mmol/L (18-29) Blood Urea Nitrogen 18mg/dL (8-27) Creatinine 0.79mg/dL (0.76-1.27) Estimat Glomerular Filtration Rate 101mL/min (>59) Glucose Level 114mg/dL (60-99) Calcium Level 8.7mg/dL (8.5-10.1) Total Bilirubin 0.3mg/dL (0.0-1.2) Aspartate Amino Transf (AST/SGOT) 28U/L (0-50) Alanine Aminotransferase (ALT/SGPT) 35U/L (0-44) Alkaline Phosphatase 71U/L (25-160) Total Protein 6.9g/dL (6.4-8.4) Albumin 3.4g/dL (3.4-5.0) Assessment/Plan Assessment/Plan Warfarin per Rx Indication: A-Fib Goal 2-3; Yesterday's INR: 2.13; No dose given; Restarted tonight: 5mg given ( Confirmed with pt's home dose) Daily INR ordered Tex Moreno PharmD Oct 06, 2016 18:13
--- NOTE | 2016-10-06 19:46 | PROG NOTE ---
[address] [address] PROGRESS NOTE PATIENT: YASEMIN ZAFAR : 1940 MR#: [id number] ADMIT: 10/05/2016 JOB ID: [id number] DATE: 10/06/2016 REQUESTING PHYSICIAN: Dr. Sawyer CLINICAL HISTORY: The patient is a 76-year-old gentleman with history of Guillain-[place] and recurrence of symptoms beginning earlier this week. The patient continues to have distal weakness which has not improved with one dose of IVIG. He tolerated the medications without side effects or problems. 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 The patient continues to have bulbar difficulty including swallowing problems noted by speech therapy. His reports that his speech is not at baseline. She does confirm that speech problems were present with pneumonia previously. She states that he has been on high-dose steroids over the last six weeks with presumed upper respiratory tract infection versus COPD exacerbation. He reports no worsening of breathing problems today. Notes from [place] have not yet been received. He reports no new symptoms. REVIEW OF SYSTEMS: As per the history of present illness. No new complaints. MEDICATIONS: 1. Gamunex IVIG 0.4 g/kg date 2 not yet initiated. 2. Digoxin. 3. Lasix. 4. Prednisone 20 mg two times daily. 5. Tamsulosin. 6. Morphine p.r.n. pain. 7. Potassium. 8. Diltiazem. 9. Metoprolol, 10. Albuterol p.r.n. 11. Acetaminophen p.r.n. PHYSICAL EXAMINATION: Temperature 36.3, blood pressure 119/60, pulse oximetry 93% on nasal cannula oxygen 3 L. The patient is alert and oriented, with language and speech intact and fluent, but mildly nasal. Difficulty with enunciating consonants. Head: Normocephalic, atraumatic. No evidence of carotid bruits. Lungs: The patient has scattered rhonchi throughout. Cardiac: Regular rate and rhythm. No edema in the lower extremities. SCDs in place. Neurologic: Pupils equally reactive to light and accommodation. Extraocular movements intact. Upward gaze does not elicit ptosis nor diplopia. No facial asymmetry. Tongue midline. Palate raises symmetrically. SCM and shoulder shrug, as well as hearing, appear to be intact bilaterally. Motor: Proximal motor strength is 4/5 in the upper extremities, including business unit manager. Lower extremity motor strength: Slight drift on right with straight leg raise. Deep tendon reflexes absent throughout, with plantar reflex mute. Sensation: Intact in the upper extremities. Pinprick diminished to the dorsum of the foot bilaterally. Coordination: Intact when weakness is taken into consideration in the upper extremities. Intact in the lower extremities. Gait: Deferred due to weakness. LABORATORY STUDIES: Please see chart for detail. Hemoglobin and hematocrit low at 11.3/34.1. WBC is 18. Low chloride. Elevated glucose known at 114. UA negative. IMPRESSION: The patient is a 76-year-old gentleman with subacute onset of weakness and inability to walk with examination today showing increased proximal upper extremity weakness and increased difficulty swallowing. Lower extremity strength appears somewhat improved. 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 Proximal motor involvement and history is more consistent with CIDP. I will request myasthenia labs given the bulbar involvement, however it is noted by his Ina and in the chart notes that the patient did have bulbar involvement in previous episodes of upper respiratory distress. Myasthenia gravis could have been triggered by antibiotics if present. If myasthenia were present, IVIG should also be expected to provide treatment. I will also request SPEP for paraprotein which if present would suggest a lymphoproliferative disorder. I will continue to follow with you. Please call if needed. [facility]UVANCE HEALTHDebbie
[2016-10-07] VITALS (8 sets, daily range): BP systolic 123–149; BP diastolic 62–73; PULSE 67–79; RESP 16–24; O2SAT 93–96
[2016-10-07 03:25] LABS: BASOPHILS % (AUTO) 0.2 % (0-3); EOSINOPHILS % (AUTO) 0.3 % (0-5); MONOCYTES % (AUTO) 6.3 % (4-12); Mean Corpuscular Hemoglobin 29.4 pg (27.0-35.0); Mean Corpuscular Volume 86.9 fL (81-100); NEUTROPHILS % (AUTO) 84.3 % (40-74); Platelet Count 331 bil/L (150-400)
[2016-10-07 03:42] LABS: INR 1.6 ratio
[2016-10-07 03:48] LABS: Magnesium 2.3 mg/dL (1.6-2.6); Phosphorus 3.4 mg/dL (2.5-4.9)
--- NOTE | 2016-10-07 06:36 | NUR ---
Neuro / Patient continues to have decreased sensation and tingling in hands and lower extremities. Patient is having an increasingly difficult time with his fine motor skills and coordination. Call light is switched out for the round, soft one so he can continue to use it. Speech more difficult to understand. Patient given his pills with applesauce and no coughing is noted. Patient requiring more assistance with bed mobility. MD updated on patient condition. Patient unable to void per urinal. Bladder scan shows 500ml. MD notified and order received to place campos.
[2016-10-07] MEDS: predniSONE 20 mg Tablet PO SCH ×2 (08:02→19:31)
[2016-10-07] MEDS: Diltiazem CD 240 mg ER24 Capsule PO SCH ×2 (08:02→19:31)
[2016-10-07] MEDS: Albuterol-Ipratropium 3 mL Inhalation Solution NEB SCH ×4 (08:13→20:19)
--- NOTE | 2016-10-07 08:43 | PCM.PNMED ---
Subjective Date of Service Oct 07, 2016 Subjective He feels weaker in his upper arms and upper legs today. His voice is a little more hoarse. His nephew is greater than -40. He denies any shortness of breath or choking. No abdominal pain. Exam Vital Signs Vital Sign - Last Date Time Temp Pulse Resp B/P Pulse Ox O2 Delivery O2 Flow Rate FiO2 10/07/16 08:26 Supplement Oxygen 10/07/16 08:15 70 24 95 4.00 10/07/16 07:34 35.7 142/73 Intake and Output 10/06/16 10/06/16 10/07/16 Cumulative From/Thru 15:00 23:00 07:00 10/05/16 10:25 - 10/07/16 06:34 Intake Total 300 ml 870 ml Output Total 1175 ml 775 ml 3175 ml Balance -875 ml -775 ml -2305 ml Intake Oral 300 ml IV Total 300 ml 570 ml Output Urine Total 1175 ml 775 ml 3175 ml Exam Alert oriented 3, slurred speech and slow to speak. Hoarse voice voice. Anicteric sclera, no ptosis. No facial droop Lungs are clear to normal effort. Heart is regular without murmur. Abdomen is soft nontender Extremities are free of edema. The patient has inability left arms of the shoulders bilaterally and inability to lift legs at the thighs bilaterally. This is worse today. 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 Admitted for chronic inflammatory demyelinating polyneuropathy and COPD exacerbation. 1. Chronic inflammatory demyelinating polyneuropathy. Present on admission. Active - Pt with a history of GBS 2 years ago presents with weakness and paresthesias onset over 2 weeks. He has distal weakness and paresthesias in upper and lower extremities. 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 He previously responded well to IVIG without any problems, so we will repeat his treatment. Per Dr. Reilly's recommendations, we will monitor closely for signs of respiratory failure, as well as autonomic problems such as fluctuations in blood pressure and heart rate. MRI was indicated but unable to perform due to pacemaker. - Will check post void residual with bladder scan to rule out bladder involvement. - Physical therapy and occupational therapy ordered - Requesting records of prior admit at [facility] - Dr. Reilly of Neurology has been consulted. We appreciate her input. - Gamunex 0.4 g/kg per day over 4-5 days. (1st dose given 10/05) - Speech evaluation noted - patient is at moderate aspiration risk with vocal cord weakening and decreased cough ability. Diet changed to crushed food and ice chips. Today, Saturday, that the patient feels like the weakness is getting worse in the arms and legs. His speech is also worse but his NIF is adequate. We will continue the IVIG and follow closely. 2. COPD exacerbation. Present on admission. Active. - Pt presents with progressive shortness of breath on exertion, coughing, and wheezing. He is on 2L home O2. Currently satting 94 on 2L. CXR showed no acute disease. - Duoneb q6hwa - Albuterol neb q2h PRN - Continue home prednisone 20 mg daily This is stable. There is no evidence for an upper respiratory infection. 3. Hyperglycemia, acute. Present on admission. Active. - Glucose 184 on admission. Likely secondary to chronic steroid use. No prior history of diabetes. - A1c - Humalog low dose correctional scale. He continues to have hyperglycemia, we will add Lantus at 5 units now and at bedtime. 4. Leukocytosis, acute. Present on admission. Active. - WBC 18.2 on admission. Likely secondary to steroid use. CXR and UA negative, pt denies fever or chills. - Will continue to monitor at this time. 5. Paroxysmal atrial fibrillation, chronic. - Pt in NSR on EKG. - Continue home digoxin, diltiazem, metoprolol, warfarin 6. Hypertension, chronic - Continue home furosemide and KCl 7. Benign prostatic hypertrophy, chronic. - Continue home tamsulosin 8. Other Chronic Conditions - Pulmonary hypertension. - Tachy-gio syndrome. - History of Guillain-[place] - Bowel regimen as needed - Antiemetic as needed Disposition: Patient will be monitored for pulmonary or autonomic complications for at least 2 days. If the patient does improve enough to ambulate, he can be discharged home with home IVIG and outpatient workup with neurology. If he fails to resolve symptoms or if symptoms progress, we will transfer him to a center that can perform plasma exchange. INPATIENT: Patient is admitted under inpatient status with expected length of stay greater than 2 midnights due to severity of presenting symptoms, risk of adverse event, and complexity of treatment plan. Pain Evaluation: Adequate Pain Control Resuscitation Status: CPR: Attempt Resuscitation Time spent 30 minutes Marshall Bernard MD Oct 07, 2016 08:43
[2016-10-07] MEDS ORDERED: Glucose 40% Oral Gel 15 Gm Tube PO PRN (08:45)
[2016-10-07] MEDS: Insulin LISPRO 300 Unit/3 mL Inj SUBQ SCH ×2 (12:54→16:59)
--- NOTE | 2016-10-07 14:15 | NUR ---
Neuro: A/o x3, moves extremities weakly, responds appropriately. Pt has very weak/hoarse voice, failed swallow eval, NPO except for meds. Per PT, strength and fine motor skills are decreased, unable to sit unsupported at EOB. Pt reported feeling like he may need to attempt having a BM, unable to attempt transfer to [facility], refused offered bedpan, says he will try again later. q2h turn, care ongoing.
--- NOTE | 2016-10-07 15:02 | PCM.PHAPRO ---
Progress Date of Service: Oct 07, 2016 Warfarin dosing A/ INR is subtherapeutic at 1.6 today. P/ Give warfarin 5mg today and re-evaluate tomorrow. Sb Gil Oct 07, 2016 15:02
--- NOTE | 2016-10-07 15:23 | NUR ---
1448 Carline Burr RN assumes care
--- NOTE | 2016-10-07 16:02 | NUR ---
EZ signed INGRID Boone
[2016-10-07] MEDS: GAMUNEX C IV SCH ×2 (16:53)
[2016-10-07] MEDS: 0.9% Sodium Chloride 1,000 ML IV SCH (18:37)
[2016-10-07] MEDS ORDERED: Insulin GLARgine 100 Unit/mL Syringe SUBQ SCH ×2 (21:00)
[2016-10-08] VITALS (10 sets, daily range): BP systolic 113–151; BP diastolic 58–74; PULSE 70–81; RESP 12–19; O2SAT 90–99
[2016-10-08 03:07] LABS: INR 2.29 ratio
[2016-10-08] MEDS: 0.9% Sodium Chloride 1,000 ML IV SCH ×2 (03:27→14:32)
--- NOTE | 2016-10-08 05:41 | NUR ---
Neuro Minimal changes to patient overnight. He is switched to 6L OM due to desaturations while asleep. Patient complains of numbness and tingling from above his knee down to his feet and for his hands. Patient lacks fine motor coordination but is able to use the round, soft call light to make his needs known. Voice remains hoarse. NPO.
[2016-10-08] MEDS: Albuterol-Ipratropium 3 mL Inhalation Solution NEB SCH ×4 (07:19→21:00)
[2016-10-08] MEDS: predniSONE 20 mg Tablet PO SCH (09:33)
[2016-10-08] MEDS: Diltiazem CD 240 mg ER24 Capsule PO SCH ×2 (09:33→20:19)
--- NOTE | 2016-10-08 09:45 | NUR ---
NUTRITION FOLLOW UP: ASSESS: 76 YO M admitted to CCU for chronic inflammatory demyelinating polyneuropathy and COPD exacerbation. Pt remains NPO per speech therapy d/t aphonia. Pt has received minimal nutrition X 3 days. Pt continues to get weaker per CCU rounds. Neurology following. PMHx: Paroxysmal atrial fibrillation, COPD, pulmonary HTN, tachy-gio syndrome, Guillain-[place], HTN. DIET: NPO. LABS: Reviewed. (10/07): Cr 0.70, Glu 177, Alb 3.3 MEDICATIONS: Reviewed. Insulin, Coumadin, Lasix. GI: No BM noted. SKIN: No issues reported. 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 2) Inadequate oral intake related to inability to consume sufficient energy, as evidenced by requirement for NPO per ST order.---PERSISTS. INTERVENTION: 1) If diet unable to be advanced in the next 48 hours consider nutrition support. 2) Once diet advanced, will add high protein supplements to trays. MONITOR/EVALUATE: Diet advance/tolerance, PO intake, labs, GI/nutrition status. Follow per high nutrition risk guidelines.
--- NOTE | 2016-10-08 09:58 | NUR ---
Evaluation completed. Please go to "Notes" then click on "Assessments and Notes" (bottom left corner of screen). Then select appropriate discipline tab on top of screen.
--- NOTE | 2016-10-08 12:01 | DRSVH ---
PROCEDURE: X-RAY CHEST ONE VIEW, PORTABLE ([id number]) INDICATIONS: dyspnea TECHNIQUE: One view of the chest was acquired. COMPARISON: [facility], CR, XR CHEST 1VW (PORTABLE), 10/05/2016, 11:49. FINDINGS: Surgical changes and devices: Stable positioning of dual chamber left cardiac pacer. Lungs and pleura: No pleural effusions or pneumothorax. Left basilar airspace opacity present in sm all left pleural effusion. Right lung is clear. No pneumothorax.. Mediastinum: Mediastinal contours appear normal. Heart size is normal. Bones and chest wall: No suspicious bony lesions. Overlying soft tissues appear unremarkable. IMPRESSION: Left basilar aspiration versus pneumonia and small pleural effusion is present. Dictated by: Hussein Varela RR Interpreted: Elizabeth Crystal MD on 10/08/2016 at 12:00 Transcribed by: MARTA on 10/08/2016 at 12:01 Approved by: Elizabeth Cyrstal M.D. on 10/08/2016 at 16:36
--- NOTE | 2016-10-08 16:20 | DRSVH ---
PROCEDURE: CT CERVICAL SPINE WITHOUT CONTRAST ([id number]) INDICATIONS: R/o cervical involvement peripheral weakness TECHNIQUE: Noncontrast 3 mm thick sections acquired from the skull base to the T4 level. Sagittal and coronal r eformats were then constructed. For radiation dose reduction, the following was used: automated exp osure control, adjustment of mA and/or kV according to patient size. COMPARISON: None. FINDINGS: Image quality: Excellent. Bones: No fractures or dislocations. Visualized superior ribs are intact. Multilevel disc desiccat ion is present throughout the cervical spine most prominent at C5-6 and C6-7. There is trace anteroli sthesis of C2 on C3, C7 on T1, T1 on T2, T2-T3 trace retrolisthesis of C4 on C5, C5 on C6. Disc bulges are present at all levels of the cervical spine. Mild spinal stenosis is present at C4-5, mild to moderate C5-6, mild C6-7. Moderate bilateral foraminal narrowing is present at C2-3, severe bilateral C3-4, C4-5, C5-6, C6-7, left greater than right and mild bilateral C7-T1. Significant multi level uncovertebral hypertrophy is present. Soft tissues: Prevertebral soft tissues are normal in thickness. No paravertebral hematomas. No ap ical pneumothoraces. The esophagus appears thickened within the proximal segment. IMPRESSION: 1. Multilevel disc bulges. 2. Multilevel spinal stenosis secondary to disc bulges. 3. Significant multilevel foraminal narrowing secondary to prominent uncovertebral arthropathy. 4. Prominent thickening of the proximal esophagus. This is overall nonspecific and only seen on limit ed view. Recommend interval followup is indicated. Dictated by: Elizabeth Crystal M.D. on 10/08/2016 at 16:12 Approved by: Elizabeth Crystal M.D. on 10/08/2016 at 16:18
[2016-10-08] MEDS: GAMUNEX C IV SCH ×2 (16:23)
--- NOTE | 2016-10-08 18:09 | PCM.DIMED ---
JAKE LUQUE DO 10/08/16 1805: Discharge Instructions Date of Service Oct 08, 2016 Dates of Hospitalization Oct 05, 2016 at 13:14 Discharge Diagnosis Discharge Diagnosis 1. Chronic inflammatory demyelinating polyneuropathy. Present on admission. Active 2. COPD exacerbation. Present on admission. Stable 3. Hyperglycemia, acute. Present on admission. Improving. 4. Leukocytosis, acute. Present on admission. Active and improving. 5. Paroxysmal atrial fibrillation, chronic. 6. Hypertension, chronic 7. Benign prostatic hypertrophy, chronic. 8. Other Chronic Conditions Diet Heart Healthy, Diabetic Patient Instructions You are being transferred to [facility] for continued management of CIDP and for plasma-phoresis. Marshall Bernard MD 10/09/16 0801: Discharge Instructions Attending's Statement Patient seen and examined with house staff. Agree with all attached documentation. JAKE LUQUE DO Oct 08, 2016 18:05 Marshall Bernard MD Oct 09, 2016 08:01
--- NOTE | 2016-10-08 18:59 | NUR ---
Nuero/Pain/CT/IVIG Patient a/o x 4, c/o shoulder pain multiple times, IV Morphine given with good effect. Patient states he has bilat LE numbness from feet up to mid lateral thighs and in hands and up arms. Patient attempts to assist with turns. Patient unable to use soft touch call light, freq rounds, q 1 hr and prn done. Patient down to CT scan this afternoon and MD notified when patient returned to room. Patient npo except for meds. IVIG given patient lilian well without side effects. family at bedside and updated on poc and plans to transfer to [facility] when bed available.
[2016-10-08] MEDS ORDERED: Propofol 10,000 mCg/mL 100 mL Inj ONE (19:10)
[2016-10-08] MEDS ORDERED: Propofol Inj 1,000,000 MCG in IV Premix 1 EACH IV SCH (19:11)
[2016-10-08] MEDS ORDERED: fentaNYL 2,500 mCg/250 mL 2,500 MCG in IV Premix 1 EACH IV PRN (19:11)
--- NOTE | 2016-10-08 19:13 | NUR ---
Intubation: Patient intubated. 14mg of Etomidate given.
[2016-10-08] MEDS ORDERED: fentaNYL-PF 50 mCg/mL 2 mL Inj IVPUSH PRN (19:15)
--- NOTE | 2016-10-08 19:37 | PCM.DC.MED ---
Discharge Summary Date of Service Oct 08, 2016 Dates of Hospitalization Date of Hospital Admission Oct 05, 2016 at 13:14 Date of Discharge: Oct 08, 2016 Providers: Admitting Physician: Marshall Bernard MD Primary Care Physician: Elvis Hylton MD Attending Physician: Marshall Bernard MD Diagnosis at Time of Discharge Diagnosis at Time of Discharge 1. Chronic inflammatory demyelinating polyneuropathy. Present on admission. Active 2. COPD exacerbation. Present on admission. Stable 3. Hyperglycemia, acute. Present on admission. Improving. 4. Leukocytosis, acute. Present on admission. Active and improving. 5. Paroxysmal atrial fibrillation, chronic. 6. Hypertension, chronic 7. Benign prostatic hypertrophy, chronic. 8. 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 Patient reports that he has been getting progressively weaker, and is now unable to walk today. He also mentions a foreign body sensation in his throat. He denies headache, visual disturbances, confusion, lightheadedness, fainting, or facial droop. He reports he had a recent upper respiratory tract infection over the last few weeks. He also reports he has chronic dyspnea on exertion associated with his COPD, which has been getting worse over the last month, with coughing and wheezing. He states he has been too weak to cough up sputum. His dyspnea has been worsening to the point that he could barely walk across a room without becoming significantly short of breath. He is unsure if he has orthopnea but states he sleeps in a recliner. He does report paroxysmal nocturnal dyspnea. He denies lower extremity edema. In the ED, BP was 144/73, O2 was 94 on 2L NC. WBC 18.2, Hb 11.9, glucose 184, BNP 540. He was started on IVIG per Dr. Reilly. He was recommended to have a cervical, thoracic, and lumbar MRI but was unable to do so because of his pacemaker. 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 Admitted for chronic inflammatory demyelinating polyneuropathy and COPD exacerbation. Upon admission patient was standing and only complained of increased paresthesias and neuropathy. Since 4 days patient has experienced progressive weakness and increased scattered paresthesias and neuropathy, which has included proximal hip flexors, shoulder girdle, increased hoarseness and patient is currently talking in a whisper, as well as increased O2 demands from 2 L (home O2) on admission to currently 8 L oxygen mask. Patient's vitals have been stable with respirations of 18 and 68 L O2. Plan is to intubate patient and transfer via ACLS to [facility] ICU. Upon arrival we will reverse patient's warfarin with vitamin K and FFP and evaluated for plasmapheresis. 1. Chronic inflammatory demyelinating polyneuropathy. Present on admission. Active - Pt with a history of GBS 2 years ago presents with weakness and paresthesias onset over 2 weeks. He has distal weakness and paresthesias in upper and lower extremities. 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 He previously responded well to IVIG without any problems, so we will repeat his treatment. Per Dr. Reilly's recommendations, we will monitor closely for signs of respiratory failure, as well as autonomic problems such as fluctuations in blood pressure and heart rate. MRI was indicated but unable to perform due to pacemaker. - Dr. Reilly of Neurology has been consulted and recommended transfer for plasmapheresis. - Gamunex 0.4 g/kg per day over 4-5 days. (1st dose given 10/05) - Speech evaluation changed to nothing by mouth. - Saturday, that the patient feels like the weakness is getting worse in the arms and legs. - Current negative inspiratory force at 28 this is decreased from 2 days prior of 40. 2. COPD exacerbation. Present on admission. Active. - Pt presents with progressive shortness of breath on exertion, coughing, and wheezing. He is on 2L home O2. Currently satting 94 on 2L. CXR showed no acute disease. - Duoneb q6hwa - Albuterol neb q2h PRN - Continue home prednisone 20 mg daily - She is stable. There is no evidence for an upper respiratory infection. 3. Hyperglycemia, acute. Present on admission. Active. - Glucose 184 on admission. Likely secondary to chronic steroid use. No prior history of diabetes. - A1c pending, previous A1c one year ago 6.6. - Humalog low dose correctional scale. He continues to have hyperglycemia, we will add Lantus at 5 units now and at bedtime. 4. Leukocytosis, acute. Present on admission. Active. - WBC 18.2 on admission. Likely secondary to steroid use. CXR and UA negative, pt denies fever or chills. - Will continue to monitor at this time. 5. Paroxysmal atrial fibrillation, chronic. - Pt in NSR on EKG. - Patient has a pacemaker in place. - On warfarin and current INR therapeutic. - Continue home digoxin, diltiazem, metoprolol, 6. Hypertension, chronic - Continue home furosemide and KCl 7. Benign prostatic hypertrophy, chronic. - Continue home tamsulosin 8. Other Chronic Conditions - Pulmonary hypertension. - Tachy-gio syndrome. - History of Guillain-Lathrop - Bowel regimen as needed - Antiemetic as needed Disposition: Patient to be intubated and transferred to [facility] ICU for CIDP continued pulmonary management and plasmapheresis. Exam Vital Signs (Last) Date Time Temp Pulse Resp B/P Pulse Ox O2 Delivery O2 Flow Rate FiO2 10/08/16 16:07 73 18 92 OxyMask 8.00 10/08/16 15:30 37.0 118/68 Exam Alert oriented 3, slurred speech and slow to speak. Hoarse voice voice. Anicteric sclera, no ptosis. No facial droop Lungs are clear to normal effort. Heart is regular without murmur. Abdomen is soft nontender Extremities are free of edema. The patient has inability left arms of the shoulders bilaterally and inability to lift legs at the thighs bilaterally. This is worse today. Test 10/05/16 11:32 10/05/16 15:06 10/07/16 03:10 10/07/16 12:05 Metamyelocytes % 1% (0-0) Myelocytes % 3% (0-0) Pro-B-Type Natriuretic Peptide 544.6pg/mL (0-486) Hold Benson Top Tube Received (Received) Urine Color Straw (YELLOW) Urine Appearance Hazy (CLEAR,HAZY) Urine pH 7.0 (5.0-8.0) Urine Specific [place] 1.015 (1.003-1.035) Urine Protein Negativemg/dL (NEG,TRACE) Urine Glucose (UA) Negativemg/dL (NEGATIVE) Urine Ketones Negativemg/dL (NEGATIVE) Urine Occult Blood Negative (NEGATIVE) Urine Nitrite Negative (NEGATIVE) Urine Bilirubin Negative (NEGATIVE) Urine Urobilinogen Normalmg/dL (NORMAL) Urine Leukocyte Esterase Negative (NEGATIVE) Urine RBC 0-2/hpf (0-2) Urine WBC 0-5/hpf (0-5) Urine Epithelial Cells Occasional/hpf (NONE-MOD) Urine Crystals None seen (NONE SEEN) Urine Bacteria None/hpf (NONE-FEW) Urine Hyaline Casts None/lpf (NONE) Urine Granular Casts None seen (NONE SEEN) Urine Waxy Casts None seen (NONE SEEN) Urine Red Blood Cell Casts None seen (NONE SEEN) Urine White Blood Cell Casts None seen (NONE SEEN) Urine Mucus None seen (None Seen) Urine Trichomonas None seen (NONE SEEN) Urine Yeast None (NONE SEEN) Urinalysis Comment None Urine Culture Reflexed Not indicated White Blood Count 16.7th/mm3 (3.8-10.1) Red Blood Count 4.12mil/mm3 (4.40-5.80) Hemoglobin 12.1g/dL (13.8-17.2) Hematocrit 35.8% (41.0-50.0) Mean Corpuscular Volume 86.9fL (81-100) Mean Corpuscular Hemoglobin 29.4pg (27.0-35.0) Mean Corpuscular Hemoglobin Concent 33.8% (32.0-37.0) Red Cell Distribution Width 15.7% (12.3-15.4) Platelet Count 331bil/L (150-400) Neutrophils (%) (Auto) 84.3% (40-74) Lymphocytes (%) (Auto) 4.4% (14-46) Monocytes (%) (Auto) 6.3% (4-12) Eosinophils (%) (Auto) 0.3% (0-5) Basophils (%) (Auto) 0.2% (0-3) Sodium Level 134mEq/L (134-144) Potassium Level 4.4mEq/L (3.5-5.2) Chloride Level 89mEq/L (97-108) Carbon Dioxide Level 35mmol/L (18-29) Blood Urea Nitrogen 19mg/dL (8-27) Creatinine 0.70mg/dL (0.76-1.27) Estimat Glomerular Filtration Rate 116mL/min (>59) Glucose Level 177mg/dL (60-99) Calcium Level 8.8mg/dL (8.5-10.1) Phosphorus Level 3.4mg/dL (2.5-4.9) Magnesium Level 2.3mg/dL (1.6-2.6) Total Bilirubin 0.4mg/dL (0.0-1.2) Aspartate Amino Transf (AST/SGOT) 32U/L (0-50) Alanine Aminotransferase (ALT/SGPT) 33U/L (0-44) Alkaline Phosphatase 76U/L (25-160) Total Protein 8.2g/dL (6.4-8.4) Test 10/08/16 02:35 Prothrombin Time 24.9sec (8.1-12.5) Prothromb Time International Ratio 2.29ratio Discharge Medications Discharge Medications ([Diltiazem Hcl]) 240 MG CAP.ER.24H 240 MG PO BID Prescribed by: ANGELA MILLER DO ([Metoprolol Tartrate]) 50 MG TABLET 50 MG PO BID Prescribed by: ANGELA MILLER DO Digoxin (Digoxin) 125 Mcg Tablet 125 MCG PO DAILY (Reported) Fluticasone/Salmeterol (Advair 250-50 Diskus) 60 Puff/Inh Disk 1 PUFF IH BID ( Reported) Furosemide (Furosemide) 20 Mg Tab 40 MG PO DAILY (Reported) Olodaterol HCl (Striverdi Respimat) 4 Gm Mist.inhal 2 PUFFS IH DAILY (Reported) Potassium Chloride ER (Klor-Con M10) 10 Meq Tab.er.prt 10 MEQ PO DAILYWM ( Reported) Prednisone (PredniSONE) 20 Mg Tablet 20 MG PO BID (Reported) Tamsulosin (Flomax) 0.4 Mg Capsule 0.4 MG PO DAILY (Reported) Tiotropium [place] (Spiriva) 18 Mcg Cap.w.dev 2 PUFF IH DAILY (Reported) Tiotropium [place] (Spiriva) 18 Mcg Cap.w.dev 18 IH DAILY (Reported) Warfarin Sodium (Coumadin) 5 Mg Tablet 5 MG PO 17 Prescribed by: ANGELA MILLER DO As needed Albuterol Neb Soln (Albuterol Neb Soln) 2.5 Mg/3 Ml Vial.neb 2.5 MG IH PRN For Shortness of Breath (Reported) Albuterol Sulfate (Ventolin HFA Inhaler) 200 Puff/18 Gm Inhaler 2 PUFF INH Q4 PRN PRN For Wheezing (Reported) Followup Plan Disposition: Transfer to [facility]. Patient was intubated for airway protection for transfer. Discharge Diet: Heart Healthy, Diabetic Patient Instructions You are being transferred to [facility] for continued management of CIDP and for plasma-phoresis. Time spent 90 minutes JAKE LUQUE DO Oct 08, 2016 19:26 Marshall Bernard MD Oct 09, 2016 08:11
[2016-10-08] MEDS ORDERED: Piperacillin-Tazo 3.375 Gm Inj 3.375 GM in Dextrose 5% Minibag Plus 50 ML IV ONE (19:50)
[2016-10-08] MEDS ORDERED: 0.9% Sodium Chloride 250 ML ONE (20:10)
--- NOTE | 2016-10-08 20:11 | DRSVH ---
PROCEDURE: X-RAY CHEST ONE VIEW, PORTABLE ([id number]) INDICATIONS: POST INTUBATION to verify ETT placement TECHNIQUE: One view of the chest was acquired. COMPARISON: [facility], CR, XR CHEST 1VW (PORTABLE), 10/08/2016, 11:18. [facility], CR, XR CHEST 1VW (PORTABLE), 10/05/2016, 11:49. FINDINGS: Surgical changes and devices: Endotracheal tube is in normal position. Cardiac pacemaking device and dual chamber leads appear normal.. Lungs and pleura: No pleural effusions or pneumothorax. Lungs are abnormal, with pneumonia present at the left lower lobe that has not definitely worsened from earlier today but was not clearly presen t in the same area behind the left heart 10/05/16. Mediastinum: Mediastinal contours appear normal. Heart size is normal. Bones and chest wall: No suspicious bony lesions. Overlying soft tissues appear unremarkable. IMPRESSION: Definite retrocardiac left lower lobe pneumonia, without worsening from earlier today. E ndotracheal tube in normal position. Dictated by: Chip Pineda M.D. on 10/08/2016 at 20:09 Approved by: Chip Pineda M.D. on 10/08/2016 at 20:10
[2016-10-08] MEDS ORDERED: Chlorhexidine 0.12% 15 mL Oral Solution MT SCH (20:30)
--- NOTE | 2016-10-08 20:47 | ABG ---
DateTimeAnalyzed 20:40:00 -_ pH ____7.475 - 7.350 7.450 pCO2 ___45.6__ -mmHg 35.0 45.0 pO2 ___82.1__ -mmHg 69.0 116 HCO3- ___33.2__ -mmol/L 22.0 26.0 ABE ____8.8__ -mmol/L -2.0 2.0 tHb ___12.1__ -g/dL O2Hb ___94.9__ -% COHb ____1.5__ -% MetHb ____1.0__ -% sO2 ___97.3__ -% 25.0 FIO2 ___60.0__ -% PRVC 18 - PEEP ____7.0__ -cmH2O Set_RR ___18.0__ -b/min Vt __450.0__ -L Drawn By MM - Date/Time Notified____ 20:46:00 -_ Spontaneous_RR ___18.0__ -b/min Oxygen Device 1 VENTILATOR - Notified By MM - Notified Whom RN - B 750 -mmHg tO2 ___16.2__ -Vol% Marshall test N/A -
--- NOTE | 2016-10-08 22:32 | NUR ---
Transfer Report called to [facility] Donna Stevenson. Patient left the floor with transporters at 2220. present during transfer and took patient's watch and dentures with her. No other belongings in the room.
--- NOTE | 2016-10-09 01:05 | PROG NOTE ---
[address] [address] PROGRESS NOTE PATIENT: YASEMIN ZAFAR : 1940 MR#: [id number] ADMIT: 10/05/2016 JOB ID: [id number] DATE: 10/08/2016 REQUESTING PHYSICIAN: Marshall Bernard MD. 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 At the time, the patient had proximal as well as distal weakness and bulbar involvement. Since then, the patient reports no exacerbations of symptoms, but reports he did not completely resolve his symptoms of weakness in the upper extremities and paresthesias in the lower extremities. The patient was readmitted on October 05, 2016, with reproduction of the symptoms seen previously, now with worsening weakness of the lower extremities. He has received four days of 0.4 g/kg IVIG with no improvement of symptoms, and in fact, worsening weakness proximally is noted. He has continued on 40 mg prednisone daily which he was on prior to admission. Continued leukocytosis and hyperglycemia. The patient has worsening respiratory function today per respiratory evaluation. Notes received and reviewed from [facility]. Imaging studies of the cervical and lumbar spine done at [facility] showed degenerative disease but no obvious signs of radiculopathy. Repeat CT of the cervical spine was requested but has not yet been completed. The patient has a pacemaker which limits MRI imaging. An LP was not performed since the patient is on warfarin. The patient is afebrile but does report significant low back pain. He does not report neck pain. REVIEW OF SYSTEMS: As per the history of present illness, dysphagia, hypophonia, proximal and distal weakness. Patient reports difficulty sleeping due to noise in the ICU and pain. MEDICATIONS: Reviewed and noted. Continuing on: 1. Morphine. 2. Digoxin. 3. Furosemide. 4. Prednisone decreased to 20 mg daily. 5. Tamsulosin. 6. Diltiazem. 7. Metoprolol. 8. Potassium. 9. Albuterol. 10. Insulin. 11. Warfarin. 12. IVIG 20 g. This is day four. PHYSICAL EXAMINATION: Vital signs: Blood pressure 141/66, pulse oximetry 92% on 6 L oxygen nasal cannula, pulse 71, temperature afebrile since admission. Cardiac monitoring shows regular rhythm. Lungs: Occasional rhonchi. Cardiac: Regular rate and rhythm. No murmur. Extremities: No rashes or lesions. No edema in the lower extremities. SCDs in place. Neurologic examination: The patient is alert and oriented x3 with language and speech intact and fluent. Pupils are equally reactive to light and accommodation. Extraocular movements intact. Upward gaze for 30 seconds does not elicit ptosis. No facial asymmetry. Tongue midline. Palate raises symmetrically. SCM and shoulder shrug appear to be intact. 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 Lower extremities 3/5 hip flexor strength and dorsiflexor strength. Tone: Intact upper and lower extremities. Deep tendon reflexes absent throughout with plantar reflex mute. Sensation: Diminished pinprick in the arms with hyperalgesia in the fingertips of upper extremities; lower extremities with decreased pinprick to below the knee bilaterally. Coordination and gait not examined due to weakness. LABORATORY STUDIES: Continued lymphocytosis with white count 13.7. Elevated glucose 177. SPEP pending. IMPRESSION: The patient is a 76-year-old gentleman with history of acute inflammatory demyelinating polyneuropathy two years ago with incomplete resolution of symptoms. The patient was admitted with subacute onset of weakness and sensory changes affecting both proximal and distal muscles. He has both proximal and distal weakness suggesting CIDP but cannot rule out recurrent AIDP given apparent bulbar involvement. Despite four days of intravenous immunoglobulin, the patient's symptoms have progressed, now with increasing respiratory distress and increasing proximal weakness. Since he is not responding to both steroids and IVIG, I recommended consideration of transfer to [facility] for plasma exchange. Imaging of the cervical spine is requested given the patient's extreme upper extremity weakness. Although he is complaining of lumbar pain, this would not explain his progressive upper extremity or bulbar involvement. Myasthenia panel and SPEP are still pending. Patient was discussed with Dr. Bernard. SARAY
--- NOTE | 2016-10-09 01:31 | PROCED ---
[address] [address] PROCEDURE NOTE PATIENT: YASEMIN ZAFAR : 1940 MR#: [id number] ADMIT: 10/05/2016 JOB ID: [id number] DATE OF SERVICE: PREOPERATIVE DIAGNOSIS(ES): The patient presents with demyelinating disease, still awake and alert but having significant difficulties breathing, moving secretions and maintaining oxygenation. The patient is being transferred to [facility]. Hospitalist requested intubation. This was discussed by the hospitalist with the family and the son, as well as by myself with the and the son. They agree to proceed. POSTOPERATIVE DIAGNOSIS(ES): SURGEON: Devendra Chacon MD DESCRIPTION OF PROCEDURE: The patient is in the supine, head up position. The patient was pre-oxygenated. Oxygen was 100%. Suction was available. The patient was given 7 cc, 14 mg of etomidate through his IV. This was flushed in. The patient became apneic. He was ventilated with an Ambu bag for a short time, about four breaths. A MAC-3 blade was used to identify the epiglottis and larynx, and a 7.5, long-term tube was placed without difficulty. The cuff was just below the cords. Good air entry was auscultated on both sides. Positive CO2 was noted. The tube was secured by Respiratory Therapy and the ventilator was connected to the patient per the orders from the hospitalist. Thank you for the consultation.
[2016-10-09] MEDS ORDERED: predniSONE 20 mg Tablet PO SCH (08:30)
[2016-12-24] MEDS ORDERED: AMIO200T PO (10:11)
[2016-12-24] MEDS ORDERED: FINA5TAB9 PO (11:34)
[2016-12-24] MEDS ORDERED: OMEP20CA11 PO (11:44)
[2016-12-24] MEDS ORDERED: METF500T4 PO (11:44)
[2016-12-25] MEDS ORDERED: DILT240C9 PO (09:07)
[2016-12-25] MEDS ORDERED: CHOL100045 PO (09:07)
[2016-12-25] MEDS ORDERED: GABA-502 PO (09:07)
[2016-12-25] MEDS ORDERED: respimat IH (09:07)
[2016-12-25] MEDS ORDERED: POLY17PO6 PO (09:07)
[2016-12-25] MEDS ORDERED: DOCU-41 PO (09:07)
[2017-02-04] MEDS ORDERED: CLIN-78 PO (16:59)
== END 2016-10-08 22:20 | disposition short-term general hospital (02) | DRG 73 ==
LOC: SED 10:16 → EDSEX 10:16 → EDBD 10:16 → UNDOADMOB 10:44 → MPC 10:44 → PCC 13:14 → CCU 13:31 → PCC 10-06 16:34 → CCU 10-06 18:13
PROVIDERS: ADMIT Hospitalist; ATTEND Hospitalist
PROC: 5A1935Z Respiratory Ventilation, Less than 24 Consecutive Hours (ICD-10-PCS; principal; 2016-10-08)
PROC: 0BH17EZ Insertion of Endotracheal Airway into Trachea, Via Natural or Artificial Opening (ICD-10-PCS; 2016-10-08)
PROC: 4A033R1 Measurement of Arterial Saturation, Peripheral, Percutaneous Approach (ICD-10-PCS; 2016-10-08)
DX: G61.81 Chronic inflammatory demyelinating polyneuritis (principal); J96.21 Acute and chronic respiratory failure with hypoxia; J44.1 Chronic obstructive pulmonary disease with (acute) exacerbation; Z99.81 Dependence on supplemental oxygen; I48.0 Paroxysmal atrial fibrillation; I10 Essential (primary) hypertension; Z87.891 Personal history of nicotine dependence; I27.2 Other secondary pulmonary hypertension; R73.9 Hyperglycemia, unspecified; Z79.52 Long term (current) use of systemic steroids; N40.0 Benign prostatic hyperplasia without lower urinary tract symptoms

== ENCOUNTER 2017-02-08 16:42 | Emergency (ER) | payer MEDICARE ==
[~2017-02-08] VITALS: Ht 167.6 cm; Wt 71.4 kg
[~2017-02-08 16:42] MED LIST changes: -ADV250INH IH; -ALBU2.5V4 NEB; +AMIO200T PO; +CHOL100045 PO; +CLIN-78 PO; +DIGO125T73 PO; +DILT240C9 PO; +DOCU-41 PO; -Diltiazem Hcl PO; +FINA5TAB9 PO; -FUR20 PO; +GABA-502 PO; -LEVO500T79 PO; +METF500T4 PO; +OMEP20CA11 PO; +POLY17PO6 PO; -POTA10TA14 PO; +PRE20 PO; +respimat IH
[2017-02-08 16:44] VITALS: BP 158/67; PULSE 43; RESP 15; O2SAT 96
[2017-02-08 16:55] VITALS: BP 163/88; PULSE 88; RESP 18; O2SAT 96
[2017-02-08 17:32] LABS: BASOPHILS % (AUTO) 0.1 % (0-3); EOSINOPHILS % (AUTO) 0.5 % (0-5); MONOCYTES % (AUTO) 5.5 % (4-12); Mean Corpuscular Hemoglobin 29.3 pg (27.0-35.0); Mean Corpuscular Volume 91.6 fL (81-100); NEUTROPHILS % (AUTO) 78.6 % (40-74); Platelet Count 220 bil/L (150-400)
[2017-02-08 17:54] LABS: TROPONIN T < 0.010 ug/L (0.0-0.011)
[2017-02-08 18:04] LABS: Magnesium 1.9 mg/dL (1.6-2.6)
--- NOTE | 2017-02-08 18:05 | DRSVH ---
PROCEDURE: X-RAY CHEST ONE VIEW, PORTABLE ([id number]) INDICATIONS: gio cardia / pacer TECHNIQUE: One view of the chest was acquired. COMPARISON: [facility], CR, XR CHEST 2VW, 01/23/2017, 13:09. FINDINGS: Surgical changes and devices: Left-sided pacer. Lungs and pleura: No pleural effusions or pneumothorax. Moderate right greater than left basilar pre dominant interstitial pulmonary opacity. Mediastinum: Mediastinal contours appear normal. Heart size is normal. Bones and chest wall: No suspicious bony lesions. Overlying soft tissues appear unremarkable. IMPRESSION: Moderate basilar predominant interstitial pulmonary opacity without sandee cardiomegaly. D ifferential considerations include atypical pneumonia versus pulmonary edema. Dictated by: Caitie López M.D. on 02/08/2017 at 17:02 Approved by: Caitie López M.D. on 02/08/2017 at 17:03
--- NOTE | 2017-02-08 18:15 | ED.REPORT ---
HPI-General Illness Date of Service Feb 08, 2017 ED Provider: Rajendra Alba MD Pt is a 76 year old male with a history of A-fib, COPD, HTN, CIPD and pacemaker insertion who presents to the ED complaining of bradycardia onset yesterday morning. He c/o associated fatigue, SOB, dyspnea, and cough. He denies lightheadedness, nausea, diaphoresis, fever, chest pain, urinary symptoms, bowel symptoms, and any other symptoms. Pt went to urgent care and was sent to the ER. Pt reports that his heart rate was 31 at home, and 39 at urgent care. He reports that he was "feeling fine with the low heart rate," however his reports that the pt was tired and couldn't keep his oxygen up. Pt admits to taking his current medications including Warfarin. Per pt, the pacemaker was placed 4 years ago by his [employer] sales [employer] lending team member, Dr. Cuellar. Nursing Notes Chief Complaint: Dysrhythmia/Cardiac Nursing Notes Reviewed: Yes Allergies: Coded Allergies: No Known Allergies (Verified Allergy, Unknown, 02/08/17) Scheduled ([Metoprolol Tartrate]) 50 MG TABLET 50 MG PO BID ([respimat]) 1 INHALER IH DAILY Amiodarone (Amiodarone) 200 Mg Tablet 200 MG PO BID Cholecalciferol (Vitamin D3) (Vitamin D) 1,000 Unit Capsule 1,000 UNIT PO DAILY Clindamycin (Clindamycin) 300 Mg Capsule 300 MG PO QID Digoxin (Digoxin) 125 Mcg Tablet 125 MCG PO DAILY Diltiazem ER (Diltiazem ER) 240 Mg Cap.er.deg 240 MG PO DAILY Finasteride (Finasteride) 5 Mg Tablet 5 MG PO DAILY Furosemide (Furosemide) 20 Mg Tab 20 MG PO DAILY Gabapentin (Gabapentin) 300 Mg Capsule 300 MG PO TID Metformin (Metformin) 500 Mg Tablet 500 MG PO DAILY Omeprazole (Omeprazole) 20 Mg Capsule.dr 20 MG PO DAILY Polyethylene Glycol 3350 (Miralax) 17 Gm Powd.pack 17 GM PO DAILY Potassium Chloride ER (Potassium Chloride ER) 10 Meq Tablet 10 MEQ PO DAILY TAKE WITH FOOD Prednisone (PredniSONE) 20 Mg Tablet 20 MG PO DAILY Tamsulosin (Flomax) 0.4 Mg Capsule 0.4 MG PO DAILY Tiotropium [place] (Spiriva) 18 Mcg Cap.w.dev 1 PUFF IH DAILY Warfarin Sodium (Coumadin) 5 Mg Tablet 5 MG PO 17 Scheduled PRN Albuterol Sulfate (Ventolin HFA Inhaler) 200 Puff/18 Gm Inhaler 2 PUFF INH Q4 PRN PRN For Wheezing Docusate Sodium (Colace) 100 Mg Capsule 200 MG PO BID PRN PRN For Constipation General Time Seen by MD: 18:11 Chief Complaint Other (Bradycardia) Hx Obtained From: Patient Arrived By: Walk-in Sudden in Onset?: No Onset Occurred: Yesterday Symptom Duration: Since onset Severity: Current: No pain currently Severity: Maximum: No pain Recent Healthcare: No recent doctor visit, No recent hospitalization Similar Sx Previous: No Past Medical History Past Medical History Notes: PCP: Dr Hylton Past Medical History 1. Paroxysmal atrial fibrillation. 2. COPD. 3. Pulmonary hypertension. 4. Tachybrady syndrome. 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 Reports: Hypertension, Denies: Congestive heart failure, Diabetes mellitus Past Surgical History Lumbar diskectomy Pacemaker Smoking History Former Smoker Social History Alcohol Use: Denies alcohol use Drug Use: Denies drug use Other Social History: Good social support, , Local resident Ambulatory Status Walker Review of Systems + Bradycardia Full Review of Systems Constitutional: Reports: Fatigue, Denies: Fever Respiratory: Reports: Dyspnea on exertion, Non-productive cough, Shortness of breath Cardiovascular: Denies: Chest pain GI: Denies: Bloody/tarry stool, Constipation, Diarrhea, Nausea Male: Denies Dysuria, Denies Incontinence, Denies Urinary frequency, Denies Urinary urgency, Denies Urination decreased, Denies Urination increased Skin: Denies Diaphoresis Neurologic: Denies: Lightheaded Complete sys rev & neg: except as marked. Physical Exam Vital Signs Vital Signs Date Time Temp Pulse Resp B/P Pulse Ox O2 Delivery O2 Flow Rate FiO2 02/08/17 20:45 84 18 164/82 97 Nasal Cannula 2 02/08/17 20:38 84 18 164/82 97 Nasal Cannula 2 02/08/17 19:06 88 16 158/73 97 Nasal Cannula 2 02/08/17 18:25 84 22 137/77 95 Nasal Cannula 2 02/08/17 16:55 88 18 163/88 96 Nasal Cannula 2 02/08/17 16:44 36.8 43 15 158/67 96 Room Air Initial VS: Reviewed Head / Eyes: Atraumatic, Normocephalic Neck: Supple, Full range of motion Respiratory: Breath sounds normal, Clear to auscultation, No respiratory distress Abdomen / GI: Soft, Non-tender Extremities: Vascular intact, Neuro intact Skin: Warm, Dry Neurologic: Alert, Oriented Psychiatric: Mood/affect normal, Behavior normal General/Constitutional: Awake, Alert Cardiovascular: Heart rate NL, Regular rhythm, Heart sounds NL, No gallop, No murmurs Pacemaker is palpable. Interpretation & Diagnostics Lab Results Interpretation Result Diagram: 02/08/17 1720 02/08/17 1720 Test 02/08/17 17:20 02/08/17 18:10 White Blood Count 14.1th/mm3 (3.8-10.1) Red Blood Count 3.45mil/mm3 (4.40-5.80) Hemoglobin 10.1g/dL (13.8-17.2) Hematocrit 31.6% (41.0-50.0) Mean Corpuscular Volume 91.6fL (81-100) Mean Corpuscular Hemoglobin 29.3pg (27.0-35.0) Mean Corpuscular Hemoglobin Concent 32.0% (32.0-37.0) Red Cell Distribution Width 17.0% (12.3-15.4) Platelet Count 220bil/L (150-400) Neutrophils (%) (Auto) 78.6% (40-74) Lymphocytes (%) (Auto) 13.0% (14-46) Monocytes (%) (Auto) 5.5% (4-12) Eosinophils (%) (Auto) 0.5% (0-5) Basophils (%) (Auto) 0.1% (0-3) Prothrombin Time 21.3sec (8.1-12.5) Prothromb Time International Ratio 1.96ratio Sodium Level 134mEq/L (134-144) Potassium Level 4.4mEq/L (3.5-5.2) Chloride Level 90mEq/L (97-108) Carbon Dioxide Level 32mmol/L (18-29) Blood Urea Nitrogen 14mg/dL (8-27) Creatinine 0.56mg/dL (0.76-1.27) Estimat Glomerular Filtration Rate 150mL/min (>59) Glucose Level 100mg/dL (60-99) Calcium Level 8.8mg/dL (8.5-10.1) Magnesium Level 1.9mg/dL (1.6-2.6) Total Bilirubin 0.3mg/dL (0.0-1.2) Aspartate Amino Transf (AST/SGOT) 23U/L (0-50) Alanine Aminotransferase (ALT/SGPT) 24U/L (0-44) Alkaline Phosphatase 68U/L (25-160) Troponin T < 0.010ug/L (0.0-0.011) Total Protein 7.7g/dL (6.4-8.4) Albumin 3.3g/dL (3.4-5.0) Digoxin Level 0.8nG/mL (0.9-2.0) ECG Interpretation ECG Interpretation: Atrial fibrillation with a rate of 91. Right bundle branch block Time: 17:36 Interpreted by: ED physician X-Ray Chest Interpretation Chest Xray Interpretation: IMPRESSION: Moderate basilar predominant interstitial pulmonary opacity without sandee cardiomegaly. Differential considerations include atypical pneumonia versus pulmonary edema. WET READ - No interruption of pacemaker leads. Dictated by: Caitie López M.D. on 02/08/2017 at 17:02 View: Portable, 1 view Interpretation / Wet Read by: Wet read ED physician, Interpret - Radiologist Re-Eval/Medical Decision Med Decision/Clinical Course 76-year-old male with a pacemaker implant. Beginning last night he has had episodes of a low measured her pulse. His had a little bit of exertional dyspnea a dry cough and some orthopnea as well. At triage here using a pulse oximeter and palpation. Heart rate is 43. On the monitor is in atrial fibrillation with a heart rate that is approximately double that. He has had no bradycardia despite a prolonged period of time on the monitor here and interrogation of his pacemaker does not reveal any recent bradycardia. I suspect he may have had some ventricular contractions that did not generate a palpable pulse. He is normotensive. Given concern for failure based on symptoms and chest x-ray, we will try some gentle diuresis with Lasix 20 mg a day 5. Follow up with cardiology following this. Source of Hx: Old records Time of Eval: 20:24 Patient Status: Condition improved Re-Evaluation/Progress Note: Pt rechecked. Informed pt of plan for discharge. Pt understands and agrees with plan for discharge. F/U instructions and RTER warnings given. All questions addressed. Consultation #1: Consulted With: Cardiology Call Returned at: 18:32 Ramp Agent: Agrees with robina, Agrees with plan Note: Consult with Dr. Salinas, Secondary Art Teacher. Discussed patient's case. Consultation #2: Call Returned at: 18:55 Ramp Agent: Agrees with eval, Agrees with plan Note: Consulted with Pacemaker interrogation. Discussed pt's case. Pt has been in A-fib since 01/19/17 with some episodes of a heart rate greater than 100. He has not had any episodes of bradycardia, and his pacemaker was set to 70 when pt is having an episode of A-fib. Consultation #3: Consulted With: Cardiology Call Returned at: 20:25 Ramp Agent: Agrees with robina, Agrees with plan Note: Consulted with Dr. Cuellar. Discussed pt's case and he concurs with plan for discharge. Counseled Regarding: Diagnosis, Lab results, Need for follow-up, When/why to return to ED Discharge & Departure Primary Impression: Congestive heart failure Congestive heart failure type: unspecified congestive heart failure type Congestive heart failure chronicity: acute on chronic Qualified Code: I50.9 - Heart failure, unspecified Additional Impression: Bradycardia Disposition: Home Discharge Condition All VS Reviewed: Yes Condition: Stable Additional Instructions: Emergency department evaluation today including area, examination, labs EKG chest x-ray review past records interrogation of pacemaker and discussion with cardiology. Measured heart rate of 43 on 1 occasion with OXIMETRY and palpation did not correlate with log cut off sawyer tracings or pacemaker interrogation. From all indications pacemaker is functioning appropriately. There does appear to be some fluid build-up on your lungs, and we would like us to be on Lasix for a few days. Take 20 mg of Lasix daily for 5 days. Plan to follow up with your [employer] sales [employer] lending team member next week. While taking the Lasix take potassium supplement also. Return to emergency department for chest pain, feeling faint, increasing shortness of breath. Referrals: Rajat Cuellar MD Attestation Portions of this note were transcribed by Mona Jaime. I, Dr. Alba personally performed the history, physical exam and medical decision-making; I reviewed and confirmed the accuracy of the information in the transcribed note. Signed by : Macey Quan, 02/08/17 and 20:30. copies to: Rajat Cuellar MD, Donald L MD Feb 08, 2017 18:15 Mona Mcallister Feb 08, 2017 18:29
[2017-02-08 18:25] VITALS: BP 137/77; PULSE 84; RESP 22; O2SAT 95
[2017-02-08 18:25] LABS: INR 1.96 ratio
[2017-02-08 19:06] VITALS: BP 158/73; PULSE 88; RESP 16; O2SAT 97
[2017-02-08] MEDS ORDERED: POTA10TA12 PO (20:32)
[2017-02-08] MEDS ORDERED: FUR20 PO (20:32)
[2017-02-08 20:38] VITALS: BP 164/82; PULSE 84; RESP 18; O2SAT 97
[2017-02-08 20:45] VITALS: BP 164/82; PULSE 84; RESP 18; O2SAT 97
== END 2017-02-08 20:45 | disposition home or self-care (01) ==
LOC: SED 16:42
DX: I11.0 Hypertensive heart disease with heart failure (principal); I50.9 Heart failure, unspecified; I48.0 Paroxysmal atrial fibrillation; R00.1 Bradycardia, unspecified; R05 Cough; J44.9 Chronic obstructive pulmonary disease, unspecified; Z95.0 Presence of cardiac pacemaker; Z79.84 Long term (current) use of oral hypoglycemic drugs; Z79.01 Long term (current) use of anticoagulants; Z87.891 Personal history of nicotine dependence
CPT/HCPCS: 36415; 71010; 80053; 80162; 83735; 84484; 85025; 85610; 93005; 99285; G0463

== ENCOUNTER 2017-03-25 13:43 | Emergency (ER) | payer OTHER, MEDICARE ==
[~2017-03-25 13:43] MED LIST changes: +FUR20 PO; +POTA10TA12 PO
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
[2017-03-25] MEDS ORDERED: 0.9% Sodium Chloride 1,000 ML IV ONE (14:05)
[2017-03-25 14:22] LABS: INR 2.26 ratio
[2017-03-25] MEDS ORDERED: STERILE IV ONE ×2 (14:25→14:30)
[2017-03-25] MEDS ORDERED: Phytonadione (Adult) 10 mg/50 mL NS IV ONE ×2 (14:25)
[2017-03-25] MEDS ORDERED: PROTHROMBIN COMPLEX IV ONE ×2 (14:25→14:30)
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
[2017-03-25 14:40] LABS: BASOPHILS % (AUTO) 0.7 % (0-3); EOSINOPHILS % (AUTO) 0.2 % (0-5); MONOCYTES % (AUTO) 3.5 % (4-12); Mean Corpuscular Hemoglobin 28.6 pg (27.0-35.0); Mean Corpuscular Volume 88.8 fL (81-100); NEUTROPHILS % (AUTO) 63.2 % (40-74); Platelet Count 176 bil/L (150-400)
[2017-03-25] MEDS ORDERED: TdaP Vaccine 0.5 mL Inj IM ONE (14:40)
[2017-03-25] MEDS ORDERED: fentaNYL-PF 50 mCg/mL 2 mL Inj IVPUSH PRN (14:55)
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
--- NOTE | 2017-03-25 15:25 | DRSVH ---
PROCEDURE: CT CHEST, ABDOMEN AND PELVIS WITH CONTRAST ([id number]) INDICATIONS: trauma TECHNIQUE: After the administration of intravenous contrast, 5 mm thick sections acquired from the lung apices t o the symphysis. 5 mm thick coronal and sagittal reformats were acquired. Additional 7 mm thick cor onal maximum intensity projection (MIP) reformats acquired through the lungs. Optional 10-minute del ayed imaging may be performed from the kidneys to the bladder. For radiation dose reduction, the fol lowing was used: automated exposure control, adjustment of mA and/or kV according to patient size. COMPARISON: None. FINDINGS: Image quality: Excellent. CHEST: Lungs: No pulmonary contusions or lacerations but there is a chronic interstitial prominence without evidence of aspiration. No acute airspace opacities. There is a small left-sided pneumothorax seen inferiorly, anteriorly, but no hemothorax. Central and peripheral airways appear patent and normal in caliber. Mediastinum: No mediastinal hematomas. Heart size is normal. No pericardial effusion. Thoracic ao rta and pulmonary arteries demonstrate normal size and enhancement. No mediastinal or hilar adenopat hy. Esophagus is normal in caliber. No hiatal hernia. Chest wall: No displaced rib fractures. No subcutaneous emphysema. No axillary or supraclavicular adenopathy. Slight edema is seen within the junction of low left neck and the left supraclavicular f maulik, better seen on neck CT scanning where a focal hematoma in the soft tissues appears present, sma ll in size. Thyroid gland appears normal weren't well-visualized. ABDOMEN: Solid organs: Liver and spleen are normal in size and enhancement, without lacerations. Gallbladder appears normal. Biliary system is non-dilated. Pancreas enhances normally, without transection. N o adrenal hematomas. Both kidneys enhance normally, without hydronephrosis or lacerations. Peritoneum and bowel: No free fluid or air. Unenhanced bowel loops demonstrate normal wall thicknes s and caliber. Nodes and vessels: No retroperitoneal or mesenteric adenopathy. Aorta and inferior vena cava are no rmal in size and enhancement except at the [id number] ureter where an aortic aneurysm is presen t measuring up to 4.2 cm in maximal axial dimension immediately adjacent to a horseshoe kidney which shows no sign of trauma. Miscellaneous: No ventral hernias. Note is made of a set of spine compression fractures, best seen and most convincingly demonstrated as acute injury is at T10 and T11 with a 21% height reduction at T 10, compared to the level to levels above, and a 26% height reduction at T. 11, compared to the level immediately below. There is a slight inferior endplate impaction at T9, and a mild superior endplat e impaction at T2. No retropulsion of bone fragments into the spinal canal is associated at any of t hese areas of injury, nor is there any visualized epidural or subdural hematoma. PELVIS: Genitourinary: Bladder wall thickness is normal. Miscellaneous: No inguinal hernias or adenopathy Bones: Pelvic ring and hip joints appear intact. No vertebral compression fractures. IMPRESSION: 1. Findings discussed in person with the trauma surgeon and emergency room physician caring for the patient. 2. Please see CT report related to cervical spine fracture involving the base of the dens, only mini mary jane displaced. 3. 4 separate areas of thoracolumbosacral spine fracture are present, involving moderate compression fractures of T10 and T11, a slight impaction fracture at the inferior endplate of T9, and a mild sup erior endplate impaction fracture involving the L2 vertebral body. None of these areas of injury are associated with retropulsion of bone fragments into the spinal canal or adjacent hematoma. 4. There is a pneumothorax that is small in size without visualized associated displaced rib fractur e on the left. No pulmonary contusion or aspiration seen. Mild chronic interstitial prominence with in the lung parenchyma. This may reflect prior smoking history. 5. 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 There is no associated evide nce of dissection, trauma or aneurysm leak. Dictated by: Chip Pineda M.D. on 03/25/2017 at 15:13 Approved by: Chip Pineda M.D. on 03/25/2017 at 15:23
--- NOTE | 2017-03-25 15:38 | DRSVH ---
PROCEDURE: X-RAY LEFT HAND, TWO VIEWS ([id number]) INDICATIONS: trauma TECHNIQUE: 2 views of the hand(s) acquired. COMPARISON: None. FINDINGS: Bones: There is an appearance of lucency along the posterior aspect of the triquetrum bone. This is o nly seen on the frontal view and it is noted that the patient is somewhat obliqued in position.. Car pal bones are normally aligned. No suspicious bony lesions. Distal aspect of the digits are not wel l visualized secondary to patient positioning. Soft tissues: No suspicious soft tissue calcifications. IMPRESSION: Appearance of nondisplaced lucency within the triquetrum as above, seen only on one view . This is suspected to be artifactual secondary to patient positioning. Recommend correlation of poin t tenderness and if concern for fracture in this region persists, repeat imaging is recommended. Dictated by: Elizabeth Crystal M.D. on 03/25/2017 at 14:31 Approved by: Elizabeth Crystal M.D. on 03/25/2017 at 14:36
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
[2017-03-25 16:09] LABS: INR 1.13 ratio
[2017-03-25 16:51] VITALS: BP 118/75; RESP 22; O2SAT 95
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
[2017-04-29] MEDS ORDERED: RIVA1TAB PO (08:31)
[2017-04-30] MEDS ORDERED: MULT-444 PO (08:37)
[2017-04-30] MEDS ORDERED: PSYL0.5216 PO (08:37)
[2017-04-30] MEDS ORDERED: ACET325T51 PO (08:37)
[2017-04-30] MEDS ORDERED: ALFU10TA11 PO (08:37)
== END 2017-03-25 16:53 | disposition short-term general hospital (02) ==
LOC: SED 13:43 → EDBD 13:43 → EDUNIT# 13:43 → SED 16:53
DX: S22.5XXA Flail chest, initial encounter for closed fracture (principal); S27.0XXA Traumatic pneumothorax, initial encounter; I71.4 Abdominal aortic aneurysm, without rupture; S22.079A Unspecified fracture of T9-T10 vertebra, initial encounter for closed fracture; S22.089A Unspecified fracture of T11-T12 vertebra, initial encounter for closed fracture; S32.029A Unspecified fracture of second lumbar vertebra, initial encounter for closed fracture; V48.5XXA Car driver injured in noncollision transport accident in traffic accident, initial encounter; Y93.89 Activity, other specified; Y92.410 Unspecified street and highway as the place of occurrence of the external cause; Y99.8 Other external cause status; Q63.1 Lobulated, fused and horseshoe kidney; I27.2 Other secondary pulmonary hypertension; I48.0 Paroxysmal atrial fibrillation; Z87.891 Personal history of nicotine dependence; Z95.0 Presence of cardiac pacemaker; Z79.01 Long term (current) use of anticoagulants; Z79.84 Long term (current) use of oral hypoglycemic drugs
CPT/HCPCS: 36415; 70450; 71010; 71260; 72125; 73090; 73120; 74177; 80053; 85014; 85018; 85025; 85610; 86850; 86922; 86927; 93005; 94799; 99291; G0390; G0480; Q9967

== ENCOUNTER 2017-05-06 11:28 | Inpatient (IN) | payer MEDICARE ==
[~2017-05-06] VITALS: Ht 167.6 cm; Wt 67.3 kg
[~2017-05-06 11:28] MED LIST changes: +ACET325T51 PO; +ALFU10TA11 PO; -AMIO200T PO; -CLIN-78 PO; -DOCU-41 PO; -FUR20 PO; -GABA-502 PO; +MULT-444 PO; -POTA10TA12 PO; +PSYL0.5216 PO; +RIVA1TAB PO; -WARF5TAB PO
[2017-05-06 11:52] VITALS: BP 102/59; PULSE 122; RESP 18; O2SAT 96
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
[2017-05-06] MEDS ORDERED: Ketorolac 15 mg/mL Inj IVPUSH ONE (13:40)
--- NOTE | 2017-05-06 14:04 | DRSVH ---
PROCEDURE: X-RAY CHEST ONE VIEW, PORTABLE ([id number]) INDICATIONS: chest pain TECHNIQUE: One view of the chest was acquired. COMPARISON: [facility], CT, CT CHEST ABD PELVIS W CON, 03/25/2017, 14:12. [facility], CR, XR CHEST 1VW (PORTABLE), 03/25/2017, 13:49. FINDINGS: Surgical changes and devices: Dual-lead cardiac pacer is stable. Lungs and pleura: No pleural effusions or pneumothorax. Focal opacity noted in the right upper lobe suspicious for early pneumonia. Patchy opacities noted in the left lung base not significantly change compared to prior examination. Mediastinum: Mediastinal contours appear normal. Heart size is normal. Bones and chest wall: No suspicious bony lesions. Overlying soft tissues appear unremarkable. IMPRESSION: Focal opacity in the right midlung suspicious for pneumonia. Dictated by: Becky Lozoya MD, PhD on 05/06/2017 at 12:58 Approved by: Becky Lozoya MD, PhD on 05/06/2017 at 13:03
[2017-05-06] MEDS ORDERED: Diltiazem 5 mg/mL 5 mL Inj IVPUSH ONE ×2 (14:25→15:40)
[2017-05-06 14:39] LABS: BASOPHILS % (AUTO) 0 % (0-3); EOSINOPHILS % (AUTO) 0 % (0-5); Mean Corpuscular Hemoglobin 29.1 pg (27.0-35.0); Mean Corpuscular Volume 93.5 fL (81-100); Platelet Count 235 bil/L (150-400)
[2017-05-06 14:56] LABS: MONOCYTES % (AUTO) 5 % (4-12); NEUTROPHILS % (AUTO) 93 % (40-74)
[2017-05-06 14:58] LABS: D-Dimer 0.93 mg/L FEU (<0.50); INR 1.24 ratio
[2017-05-06 15:07] LABS: TROPONIN T < 0.010 ug/L (0.0-0.011)
[2017-05-06 15:14] LABS: Magnesium 1.8 mg/dL (1.6-2.6)
--- NOTE | 2017-05-06 15:26 | DRSVH ---
PROCEDURE: US VENOUS LEG DUPLEX BILATERAL INDICATIONS: Chest pain, lower extremity edema r/o dvts TECHNIQUE: Real-time imaging, as well as color and pulse Doppler interrogation, were performed of the deep veins of both legs from the inguinal ligament to the popliteal fossa. COMPARISON: None. FINDINGS: The deep veins are normally compressible, and free of intraluminal thrombus. Color and pu lse Doppler demonstrate normal phasic intravascular flow. There is normal augmentation response to d istal compression maneuver. IMPRESSION: No evidence of deep vein thrombosis involving either the right or left lower extremities. Dictated by: Becky Lozoya MD, PhD on 05/06/2017 at 14:23 Approved by: Becky Lozoya MD, PhD on 05/06/2017 at 14:24
--- NOTE | 2017-05-06 15:31 | DRSVH ---
PROCEDURE: X-RAY CHEST ONE VIEW ([id number]) INDICATIONS: chest pain TECHNIQUE: One lateral view of the chest was acquired. COMPARISON: Merged With [facility], CT, CT CHEST ABD PELVIS W CON, 03/25/2017, 14:12. Merged With [facility], CR, XR CHEST 1VW (PORTABLE), 05/06/2017, 13:45. FINDINGS: Surgical changes and devices: Pacer leads are seen. Lungs and pleura: On the lower images, there is mild blunting of the costophrenic angles seen. Mediastinum: Mediastinal contours appear normal. Heart size is normal. Bones and chest wall: No suspicious bony lesions. Age-appropriate bony degenerative changes are seen . Overlying soft tissues appear unremarkable. IMPRESSION: Likely small bilateral pleural effusions. The scheduled chest CT will likely provide additional diagnostic information. Dictated by: Guru Haddad M.D. on 05/06/2017 at 15:26 Approved by: Guru Haddad M.D. on 05/06/2017 at 15:29
[2017-05-06] MEDS ORDERED: levoFLOXacin Inj 750 MG in IV Premix 1 EACH IV ONE (15:40)
[2017-05-06] MEDS ORDERED: Vancomycin Dose per Pharmacist XX ONE (15:40)
[2017-05-06] MEDS ORDERED: Piperacillin-Tazo 3.375 Gm Inj 3.375 GM in Dextrose 5% Minibag Plus 50 ML IV ONE (15:40)
[2017-05-06] MEDS ORDERED: Hydrocortisone 50 mg/mL 2 mL Inj IVPUSH ONE (15:40)
[2017-05-06 15:55] VITALS: PULSE 97; RESP 17; O2SAT 98
[2017-05-06] MEDS ORDERED: Vancomycin Inj 1,500 MG in 0.9% Sodium Chloride 500 ML IV ONE (15:55)
[2017-05-06] MEDS ORDERED: 0.9% Sodium Chloride 1,000 ML IV ONE (16:00)
[2017-05-06] MEDS ORDERED: RIVA20TA PO (16:24)
[2017-05-06] MEDS ORDERED: METO50TA3 PO (16:24)
[2017-05-06] MEDS ORDERED: ACET-2766 PO (16:24)
[2017-05-06] MEDS ORDERED: TIOT4MIS5 IH (16:24)
[2017-05-06] MEDS ORDERED: AMIO200T PO (16:25)
[2017-05-06] MEDS ORDERED: ALBU2.5V4 INHALATION (16:26)
[2017-05-06] MEDS: Diltiazem Inj 125 MG in Dextrose 5% 100 ML IV SCH ×2 (17:40→18:07)
[2017-05-06 17:41] VITALS: BP 98/64; PULSE 112; RESP 20; O2SAT 98
[2017-05-06] MEDS ORDERED: DILT-17 PO (17:43)
[2017-05-06] MEDS ORDERED: PRE10 PO (17:45)
[2017-05-06] MEDS ORDERED: OLOD4MIS2 IH (17:47)
[2017-05-06] MEDS ORDERED: Ondansetron 2 mg/mL 2 mL Inj IVPUSH PRN ×2 (17:50→19:45)
[2017-05-06] MEDS ORDERED: Alum-Mag Hydrox-Simeth 30 mL Suspension PO PRN ×2 (17:50→19:45)
[2017-05-06] MEDS ORDERED: Polyethylene Glycol (PEG) 17 Gm Powder PO PRN (19:45)
[2017-05-06 20:11] LABS: BASOPHILS % (AUTO) 0 % (0-3); EOSINOPHILS % (AUTO) 0 % (0-5); Mean Corpuscular Hemoglobin 29.3 pg (27.0-35.0); Mean Corpuscular Volume 93.4 fL (81-100); NEUTROPHILS % (AUTO) 91.8 % (40-74); Platelet Count 214 bil/L (150-400)
[2017-05-06 20:14] VITALS: PULSE 107
[2017-05-06 20:20] VITALS: BP 130/53; PULSE 110; RESP 24; O2SAT 93
[2017-05-06 20:37] LABS: Magnesium 1.9 mg/dL (1.6-2.6)
[2017-05-06] MEDS ORDERED: Magnesium Sulf 2 Gm/50mL Water 2 GM in IV Premix 1 EACH IV ONE (21:35)
[2017-05-06] MEDS ORDERED: 0.9% Sodium Chloride 1,000 ML IV SCH (21:35)
[2017-05-06 21:48] LABS: TROPONIN T 0.01 ug/L (0.0-0.011)
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
[2017-05-06 21:56] LABS: Phosphorus 3.3 mg/dL (2.5-4.9)
[2017-05-06] MEDS ORDERED: Albuterol-Ipratropium 3 mL Inhalation Solution NEB PRN (22:30)
[2017-05-06] MEDS ORDERED: Cefepime 2,000 mg/100 mL D5W Minibag Plus IV ONE ×2 (23:25)
[2017-05-06 23:27] VITALS: BP 109/92; PULSE 106; RESP 21; O2SAT 97
[2017-05-07] VITALS (14 sets, daily range): BP systolic 116–129; BP diastolic 71–84; PULSE 81–127; RESP 17–24; O2SAT 91–98
[2017-05-07 01:23] LABS: BASOPHILS % (AUTO) 0.1 % (0-3); EOSINOPHILS % (AUTO) 0 % (0-5); MONOCYTES % (AUTO) 6.4 % (4-12); Mean Corpuscular Hemoglobin 29.8 pg (27.0-35.0); Mean Corpuscular Volume 92.8 fL (81-100); NEUTROPHILS % (AUTO) 88.5 % (40-74); Platelet Count 207 bil/L (150-400)
[2017-05-07] MEDS: Albuterol 2.5 mg/3 mL Inhalation Solution NEB SCH ×4 (01:26→12:38)
[2017-05-07] MEDS: Insulin Human REGular 300 Unit/3 mL Inj SUBQ SCH ×4 (02:04→20:13)
[2017-05-07 02:16] LABS: APPEARANCE,URINE CLEAR (CLEAR,HAZY); COLOR,URINE DARK YELLOW (YELLOW); OCCULT BLOOD,URINE TRACE (NEGATIVE); PH,URINE 6.5 (5.0-8.0); UROBILINOGEN,URINE NORMAL (NORMAL)
--- NOTE | 2017-05-07 05:09 | NUR ---
Admit Pt arrived to PCC room 2000 via bed from ED at approx. 2000; report received from ED RN and all belongings transferred with pt. Pt denied pain upon arrival, VSS, tele afib 100s-120s. Diltiazem gtt infusing at 10mg/hr. CTA obtained after arrival to floor; per report from CT staff upon return, AC PIV had infiltrated with contrast. Heat packs applied and PIV removed; new IV inserted. During time without IV access and IV infusions, heart rate remained approx. 90s-100s, so upon reinitiation of IV infusions, diltiazem gtt weaned to 5mg/hr and po diltiazem administered per MD order. At approx. 2330, diltiazem weaned off entirely, and patient maintained HR 80s-90s until approx. 0230, when he stood at the edge of the bed to use the urinal. Upon exertion, HR increased to 120s. Even after returning to bed, HR maintained low 100s, so diltiazem restarted at 5mg/hr for approx. 30min from 0420 to 0450; at this time, diltiazem gtt off entirely and tele is afib 80s-90s. SpO2 92-97% on 2L NC; temporary increase to 3L NC for exertion r/t decrease in SpO2 to low 80s. Pt recovered once back in bed and O2 titrated back to home use of 2L. Admit documentation completed, nasal MRSA and PCR swabs and urine sample sent to lab. C-spine collar in place, LUE dressing C/D/I. Pt reported intermittent pain throughout shift at 8-9/10 to chest during deep breathing; Tylenol administered without effect, paged, morphine ordered and 2mg IVP administered x2 this shift. Pt able to rest between interventions.
[2017-05-07] MEDS: Pantoprazole 20 mg ER24 Tablet PO SCH (05:43)
--- NOTE | 2017-05-07 07:41 | DRSVH ---
PROCEDURE: CT ANGIO CHEST PULMONARY EMBOLISM ([id number]) INDICATIONS: pleuritic pain and tenderness over left ribs 8-10 TECHNIQUE: After the administration of intravenous contrast, 2 mm thick sections acquired from the pulmonary api daniel to the posterior costophrenic angles. 3-dimensional maximum intensity projection (MIP) coronal a nd sagittal reformats were then acquired through the thorax. For radiation dose reduction, the follo wing was used: automated exposure control, adjustment of mA and/or kV according to patient size. COMPARISON: [facility], CR, XR CHEST 1VW (PORTABLE), 05/06/2017, 13:45. FINDINGS: Image quality: Poor to moderate because of amount of contrast prior to infiltration Pulmonary arteries: Pulmonary arteries are normal in size, and demonstrate no intraluminal filling d efects to suggest central pulmonary embolism. Lungs and pleura: Emphysematous changes are present in the chest. There are patchy areas of infiltrat e as well as some subsegmental atelectasis at the right base. A small left-sided effusion is present. No pleural effusions or pneumothorax. Central and peripheral airways are patent. Mediastinum: Heart size is enlarged, without pericardial effusion. No mediastinal or hilar adenopat hy by size. Scattered minimally prominent lymph nodes consistent with chronic inflammation are presen t. Thoracic aorta is normal in caliber and enhancement. Esophagus is normal in caliber, without hiat al hernia. Bones and chest wall: Pacemaker from the left anterior upper chest is present. ekg monitor tech leads are seen over the chest. No suspicious bony lesions. Ribs and thoracic spine appear intact throughou t. Thyroid gland is within normal limits. No axillary or supraclavicular adenopathy. Abdomen: Visualized upper abdominal solid organs appear normal in the early arterial phase of enhanc ement. Several small cholesterol gallstones are present. IMPRESSION: 1. No evidence for pulmonary embolus is seen. 2. Emphysematous changes in the lungs with superimposed patchy areas of pneumonia bilaterally and lawrence e subsegmental atelectasis at the right base and small effusion at the left base. 3. Low density foci in the gallbladder consistent with small cholesterol stones. Dictated by: Crispin Gay M.D. on 05/07/2017 at 7:33 this report corresponds to the findings of the preliminary NSR report. Approved by: Crispin Gay M.D. on 05/07/2017 at 7:39
[2017-05-07] MEDS ORDERED: Sodium Chloride LOK Flush 10 mL Syringe IVFLUSH PRN ×2 (08:00)
[2017-05-07] MEDS ORDERED: Cefepime Inj 2,000 MG in Dextrose 5% Minibag Plus 100 ML IV SCH (08:30)
[2017-05-07] MEDS: Vancomycin Dose per Pharmacist XX SCH (08:30)
[2017-05-07] MEDS ORDERED: Vancomycin 1 Gm/200 mL NS Premix IV SCH ×2 (08:30→20:30)
--- NOTE | 2017-05-07 08:30 | NUR ---
BC ID team notified of positive blood cultures. ID to manage IV antibiotic needs.
[2017-05-07] MEDS: Tiotropium 18mcg/Cap 5 Capsule Inhaler Kit INHALATION SCH (08:45)
--- NOTE | 2017-05-07 08:50 | NUR ---
Tele MD notified that pt sustaining in 120s beginning at about 0835. Denies chest pain or SOB VSS. Only complaint is left upper quadrant sharp/aching pain 8/10 which is not new but ongoing for the past few days. MD aware. Tylenol given this am and will monitor. Not currently on cardiac drip but po cardiac meds given. Per MD to continue to monitor.
--- NOTE | 2017-05-07 10:13 | NUR ---
Rounds Care team notified that pt has imcompatible IV meds and only 1 PIV. Team/MD states to hold off on PICC and will evaluate, aware of positive blood cultures. Per MD to evaluate need for fluids with Na 129. Notified care team of positive MRSA nasal swab, pt placed on contact precautions. Pt continues to be in 80s to 120s. To continue to monitor at this time.
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
[2017-05-07] MEDS ORDERED: levoFLOXacin Inj 750 MG in IV Premix 1 EACH IV SCH ×2 (11:00→20:30)
--- NOTE | 2017-05-07 12:00 | NUR ---
ID ID aware of +MRSA cultures and left arm and left leg wound sites, per ID to continue vanco and all other antibiotics to be dc'd at this time. To monitor. Pt remains afebrile and wound care to consult.
[2017-05-07] MEDS ORDERED: 0.9% Sodium Chloride 1,000 ML IV ONE (12:20)
[2017-05-07] MEDS ORDERED: Vancomycin Inj 1,000 MG in IV Premix 1 EACH IV ONE (12:25)
--- NOTE | 2017-05-07 13:05 | NUR ---
Tele MD notified that pt trends in last 1/2 hour back in 110s to 120s. MD to review necessity of nebs and determine need for DC. VSS. Pt continues to deny chest pain or SOB. Wound care contacted and to evaluate pt L arm and L thigh. To continue to monitor.
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
--- NOTE | 2017-05-07 14:25 | NUR ---
CT Pt placed on tele box and taken down for ordered abd ct. Pt stable. Pain abating.
--- NOTE | 2017-05-07 14:45 | NUR ---
Inpatient Wound Nurse Patient seen for assessment and treatment of graft donor and host sites. Intended plan of care reviewed with outpatient Wound Center since patient will be seeing Dr. Olson there and skin grafts are frequently managed at Wound Center. Dorsum of L hand, 2.5 cm L x 1 cm W denuded area just inside suture line, 50% yellow slough, 50% glossy pink wound bed. No drainage, no odor. On forearm, in area of sutures and dried crusts in random, scattered pattern is a denuded area 4 cm L x 2 cm W, glossy pink wound bed, no drainage, no odor. Both of these were cleansed with NS and covered with Xeroform, then roll gauze, and then all secured with BEN wrap. Posterior lateral L thigh donor site is 14 cm L x 7 cm W, bright red, dry, and erythemic, tender to touch. Wound was cleansed with NS and blotted dry, then covered with Xeroform and bordered sacral Mepilex with silicone facing. The Mepilex should be more comfortable than island dressing as it will provide some cushion and silicone border is softer on skin that tape. This dressing also encompasses a couple of dried skin tears (<0.5 x <0.5) adjacent to wound. Nursing staff may change Mepilex and roll gauze/BEN PRN. Xeroform should be left in place and undisturbed, per Wound Center typical skin graft protocol. CWON will see patient PRN for changes. was provided supplies for wound care and she stated understanding of each item's use. She will reschedule patient's appointment with Dr. Olson.
--- NOTE | 2017-05-07 15:31 | DRSVH ---
PROCEDURE: CT ABDOMEN AND PELVIS WITHOUT CONTRAST ([id number]) INDICATIONS: flank pain with palpable mass in LUQ TECHNIQUE: Noncontrast 5 mm thick sections acquired from the diaphragms to the symphysis. 5 mm coronal and sagi ttal reformats were then performed. For radiation dose reduction, the following was used: automated exposure control, adjustment of mA and/or kV according to patient size. COMPARISON: [facility], CT, CT CHEST ABD PELVIS W CON, 03/25/2017, 14:12. FINDINGS: Image quality: Good ABDOMEN: Lung bases pleural effusion is seen on the left cause is not appreciated. Infiltrate may be present.. Heart size is probably mildly enlarged. Pacemaker wires are seen. Solid organs: Liver and spleen are normal in size. Gallbladder shows some slight heterogeneity in a ttenuation suggesting gallstones. Ultrasound is suggested to rule in or out gallstones.. Pancreas is normal in contours. No adrenal nodules. Horseshoe kidney is present. There is no hydronephrosis. Ho wever each renal pelvis shows a nonobstructing stone the renal pelvis ureter junction. It overlies th e distal end of an abdominal aortic aneurysm. Peritoneum and bowel: Unenhanced bowel loops demonstrate normal wall thickness and caliber. No free fluid or air. Nodes and vessels: No retroperitoneal or mesenteric adenopathy by size criteria. Aorta is aneurysmal . The aneurysm begins 1.4 cm below left renal artery. It is somewhat bilobed in appearance with the m ore proximal larger portion measuring 3.8 x 4.5 cm and the more distal portion ending at the aortic b ifurcation measuring 2.8 x 3.1 cm. There is prominent atherosclerotic calcification. Aneurysm is unch anged in size. Miscellaneous: No ventral hernias. PELVIS: Genitourinary: Bladder wall reveals multiple trabeculations and small diverticula. Prostate is mildl y enlarged. Miscellaneous: No inguinal hernias or adenopathy. Bones: Recent T11 compression fracture unchanged.. No vertebral body compression fractures. IMPRESSION: 1. No evidence for malignancy is identified. 2. Unchanged from the previous CT scan of 03/25/17 is the abdominal aortic aneurysm and the horseshoe k idney. 3. Of interest is a small nonobstructing calculus at the renal pelvis ureter junction of each horsesh oe kidney. 4. Trabeculation of the bladder with several diverticula and no stones identified. 5. Unchanged T11 compression fracture of the vertebral body without involvement of the central canal. 6. Pleural effusion in the left chest and question of atelectasis versus minimal infiltrates by srinivasan kennedy. In addition at the right lung base there are changes consistent with some bronchiectasis. 7. Mildly enlarged heart with pacemaker. Dictated by: Crispin Gay M.D. on 05/07/2017 at 15:08 Approved by: Crispin Gay M.D. on 05/07/2017 at 15:28
--- NOTE | 2017-05-07 16:45 | NUR ---
Tele/O2 MD notified that pt HR trending 110-120s with sats dropping to 88 to 93% on 3L NC. Pt does state more SOB this evening in comparison to this am. Encouraging coughing and deep breathing as tolerated and managing pain to improve respiratory capacity. Extra one time dose of cardizem provided, BP stable. To continue to monitor, per sats as low as 88% acceptable considering pt history of COPD. Also notified of positive anaerobic blood culture. To continue current antibiotic regimen. Addendum: 05/07/17 at 1751 by GEENA GAONA RN Per MD, if evening po meds fail to control HR, may need to restart IV cardizem. To monitor.
--- NOTE | 2017-05-07 16:58 | NUR ---
Social Work: Initial Assessment/Multidisciplinary Rounds D: Per EMR review, pt is a 77 year old male admitted for A Flutter RVR, Pneumonia. Patient is [facility] with Medicare; pt states he has no LTC or VA benefits. PCP is Len Hylton MD. NOK is Ina Kumar, , . Advanced directives not completed-information provided by FRESH FOOD MANAGER. Readmit score is high, 3/8. Pt discussed in multidisciplinary rounds; the patient is not medically stable for discharge. Capacity for self-care discussed. No concerns or needs identified at this time however team will continue to evaluate patient's discharge needs and ability to care for self during admission. FRESH FOOD MANAGER met with the patient and at bedside. Sw role explained, contact info and d/c planning checklist provided- see initial assessment. Pt lives in a 5th wheel RV with his in [place]. Pt does not drive, uses a walker, w/c and electric scooter as needed for mobility assistance. Patient has home 02 through [employer]. Patient states that he is I with his ADLs except for cooking, chores and grocery shopping. The patient has HH services through [facility] Patient declined to review HH Options with the [facility] CHOICE LIST and states his preference is to resume with [facility]. Stanley has never had the need for Skilled rehab. Patient and both anticipate that the patient will discharge home via POV and would like resumed HH orders. They identify no other d/c needs and are not receptive to the possibility of SNF. A: Pt who lives at home with his . P: Evolving; pt and both anticipate pt to d/c home with resumed HH services through [facility]. FRESH FOOD MANAGER to continue to follow to assess for discharge needs. INGRID Vyas Addendum: 05/07/17 at 1704 by JENIFER WEBB Amended: Links added.
[2017-05-07] MEDS ORDERED: Ketorolac 15 mg/mL Inj IVPUSH ONE (19:45)
[2017-05-07] MEDS: Mupirocin 2% 22 Gm Ointment NASAL SCH (20:05)
[2017-05-07] MEDS ORDERED: Diltiazem CD 120 mg ER24 Capsule PO SCH (21:00)
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
[2017-05-07] MEDS: Vancomycin Inj 1,250 MG in 0.9% Sodium Chloride 250 ML IV SCH (22:29)
[2017-05-07] MEDS ORDERED: Vancomycin Inj 1,000 MG in IV Premix 1 EACH IV SCH (22:30)
[2017-05-08] VITALS (9 sets, daily range): BP systolic 104–136; BP diastolic 68–81; PULSE 86–119; RESP 19–28; O2SAT 85–99
[2017-05-08] MEDS ORDERED: Cefepime Inj 2,000 MG in Dextrose 5% Minibag Plus 100 ML IV SCH (00:30)
[2017-05-08] MEDS: Insulin Human REGular 300 Unit/3 mL Inj SUBQ SCH ×3 (02:30→14:30)
[2017-05-08] MEDS ORDERED: Albuterol-Ipratropium 3 mL Inhalation Solution NEB PRN ×2 (02:45→03:08)
[2017-05-08 03:24] LABS: EOSINOPHILS % (AUTO) 0 % (0-5); Mean Corpuscular Hemoglobin 29.4 pg (27.0-35.0); Mean Corpuscular Volume 93.1 fL (81-100); Platelet Count 216 bil/L (150-400)
[2017-05-08 03:39] LABS: INR 1.37 ratio
[2017-05-08 03:44] LABS: BASOPHILS % (AUTO) 0 % (0-3)
[2017-05-08 03:45] LABS: MONOCYTES % (AUTO) 5 % (4-12); NEUTROPHILS % (AUTO) 91 % (40-74)
[2017-05-08 03:57] LABS: Magnesium 1.9 mg/dL (1.6-2.6); Phosphorus 3.1 mg/dL (2.5-4.9)
[2017-05-08] MEDS: Pantoprazole 20 mg ER24 Tablet PO SCH (05:42)
--- NOTE | 2017-05-08 05:53 | NUR ---
Telemetry / Respiratory / Pain Tele at HS approx. 110s-120s; per report from day team, HS meds of diltiazem and metoprolol PO attempted for HR control, and if ineffective, reinitiate diltiazem gtt. At approx. 2245, diltiazem gtt started at 5mg/hr due to HR 100s-110s after notifying MD of patient status and receiving orders to restart. Pt stable on 5mg/hr of diltiazem throughout shift, with tele afib 80s-110s. Pt demonstrates significantly coarse breath sounds to assessment at HS, and frequently reports 8-9/10 pain upon inspiration; pt often endorses an inability to breathe effectively as well as severe anxiety with these symptoms. MD aware of respiratory status and pain; one time dose of Toradol IVP given at HS with relief upon reassessment, though pain relief lasted approx. 1.5hrs before patient began to request additional methods of relief. paged: order received for Fentanyl patch, and MD requested morphine doses be weaned to 1mg Q3H if the patient could tolerate longer intervals between doses. Pt reported Fentanyl patch mildly effective for pain relief, but continues to report difficulty breathing and requests morphine at approx. 70-80min intervals. MD aware. Nebulizers administered x2 this shift for respiratory relief, but oxygen demands progressively increased throughout shift from an initial 2L NC at HS to a current 4L NC at this time. SpO2 is approx. 91-94% when the patient is asleep, approx. 88-90% when patient is awake, and low to mid 80s with any exertion, anxiety, or removal of oxygen. Erythema noted to perineum this AM with sero-sanguineous weeping; linens changed and baby powder applied at this time; paged and aware.
[2017-05-08] MEDS: Tiotropium 18mcg/Cap 5 Capsule Inhaler Kit INHALATION SCH (08:19)
[2017-05-08] MEDS: Mupirocin 2% 22 Gm Ointment NASAL SCH (08:20)
[2017-05-08] MEDS ORDERED: Nystatin 100,000 Unit/Gm 15 Gm Powder TOPICAL SCH (08:30)
--- NOTE | 2017-05-08 08:45 | NUR ---
Respiratory/tele MD notified that pt with decompensating sats overnight, 86-93% with SOBE. Cardizem required re start currently at 10ml/hr. HOB up, O2 and 4LNC. Continues to have pain to left upper quadrant/ribs and MD notified pt was provided morphine and fentanyl patch overnight. To continue to monitor closely and coordinate with cardio.
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
[2017-05-08] MEDS: Vancomycin Dose per Pharmacist XX SCH (09:03)
--- NOTE | 2017-05-08 09:07 | DRSVH ---
PROCEDURE: X-RAY CHEST ONE VIEW, PORTABLE ([id number]) INDICATIONS: shortness of breath, CHF TECHNIQUE: One view of the chest was acquired. COMPARISON: [facility], CT, CT CHEST ABD PELVIS W CON, 03/25/2017, 14:12. [facility], CR, XR CHEST 1VW (PORTABLE), 05/06/2017, 13:45. [facility], CR, XR CHEST 1VW, , 14:49. [facility], CT, CT ANGIO CHEST PE, 05/06/2017, 22:01. [facility] pital, CT, CT ABD PELVIS WO CON, 05/07/2017, 14:21. [facility], CR, XR CHEST 1VW (PORTABL E), 05/08/2017, 2:49. FINDINGS: Surgical changes and devices: A pacer device is seen. Lungs and pleura: On this semiupright portable chest examination, no large pneumothorax or large ple ural effusions are seen. There is a partially loculated left-sided pleural effusion seen. Midlung i nfiltrates are seen, which are more prominent on the right side than on the left. Mediastinum: Mediastinal contours appear normal. Heart size is normal. Bones and chest wall: Age-appropriate bony degenerative changes are seen. No suspicious bony lesion s. There is a remote left mid clavicle fracture present. Overlying soft tissues appear unremarkabl e. IMPRESSION: Developing left-sided partially loculated pleural effusion. Bilateral midlung infiltrates are seen, which are more prominent on the right side of the left. Dictated by: Guru Haddad M.D. on 05/08/2017 at 9:01 Approved by: Guru Haddad M.D. on 05/08/2017 at 9:04
[2017-05-08] MEDS ORDERED: Vancomycin Serum Trough XX ONE ×2 (09:30→21:30)
--- NOTE | 2017-05-08 09:46 | NUR ---
Rounds Prior to rounds at 0845 MD notified of pt status, rate remains in 110s on 10mg/hr diltiazem drip, morning meds given, sats lower in comparison to 05/07 at 86 to 93% on 4LNC. Pt continues to c/o LUQ/rib pain requiring IV morphine with fentanyl patch provided overnight. Continues on IV antibiotics. Per RADHA at 0950 Dr. Cuellar will not be doing ARNOLDO here, but will have pt transferred to [facility]. Pt to remain NPO until further orders received.
--- NOTE | 2017-05-08 09:48 | DRSVH ---
PROCEDURE: X-RAY CHEST ONE VIEW, PORTABLE ([id number]) INDICATIONS: FOLLOW UP SEPSIS. TECHNIQUE: One view of the chest was acquired. COMPARISON: [facility], CT, CT ANGIO CHEST PE, 05/06/2017, 22:01. [facility] , CT, CT ABD PELVIS WO CON, 05/07/2017, 14:21. [facility], CR, XR CHEST 1VW, 05/06/2017, 1 4:49. [facility], CR, XR CHEST 1VW (PORTABLE), 05/06/2017, 13:45. FINDINGS: Surgical changes and devices: Stable position dual chamber left cardiac pacemaker. Lungs and pleura: Diffuse, widespread bilateral pulmonary interstitial and air space opacities are p resent increased from prior examination. Dense retrocardiac consolidation present. Small/moderate l eft pleural effusion. No pneumothorax. Mediastinum: Mediastinal contours appear normal. Heart size is normal. Bones and chest wall: No suspicious bony lesions. Overlying soft tissues appear unremarkable. IMPRESSION: 1. Pulmonary edema and/or diffuse bilateral pneumonia involving the lung bases increased from prior e xamination. 2. Small/moderate left pleural effusion redemonstrated similar to prior CT scan. Dictated by: Hussein Varela RRA Interpreted: China Abreu MD on 05/08/2017 at 8:46 Transcribed by: GREGOR on 05/08/2017 at 12:48 Approved by: China Abreu M.D. on 05/08/2017 at 10:40
[2017-05-08] MEDS: Vancomycin Inj 1,250 MG in 0.9% Sodium Chloride 250 ML IV SCH (10:29)
--- NOTE | 2017-05-08 11:30 | NUR ---
Respiratory At about 11:30 HR stable in 80s 90s with dilt drip continuing at 10ml/hr however pt desaturated to 70s w/o NC. RR 20 BP stable. Maintained mentation. Pt placed on NRB at 15LPM and assessed by MD and RT at bedside. Pt having difficulty clearing secretions. HOB 90 degrees. Sats improved to 90-92% on NRB however pt refused to continue to wear NRB and switched to oxymask at 15LPM by respiratory. Currently maintaining sats in low 90s. MD aware of scenario. Will continue to monitor and utilize RT as needed. at bedside. Addendum: 05/08/17 at 1544 by GEENA GAONA RN 1400 MD notified that pt remains on oxymask at 15L and HR stable in 80s to 90s. Per , ok to give a few ice chips prior to transfer. Addendum: 05/08/17 at 1639 by GEENA GAONA RN Per MD and RT at 11:30, will not suction pt at this time. MD aware pt having difficulty clearing secretions and rhonchorous breath sounds.
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
--- NOTE | 2017-05-08 11:48 | PCM.DIMED ---
Discharge Instructions Date of Service May 08, 2017 Dates of Hospitalization May 06, 2017 at 18:17 Discharge Diagnosis Discharge Diagnosis MRSA bacteremia with possible pacer infection Atrial fibrillation with RVR, present on admission, active. Hyperlactatemia, present on admission, Resolved COPD Diabetes mellitus Chronic inflammatory demyelinating polyneuropathy BPH GERD Diet Discharge Diet: Heart Healthy (NPO until procedure) Activity Discharge Activity: Other (Bed rest until procedure) Call your provider Call your provider for: Fever or Chills, Shortness of breath, Bleeding, Chest pain, Vomitting, Excessive diarrhea, Weakness (unilateral) Patient Instructions Follow-up plan Transfer, follow up with wool sampler Dr. Cuellar Follow-up Provider: Rajat Cuellar MD Follow-up with PCP in: Other (Transfer to [place]) Rowdy Doss DO May 08, 2017 11:48
--- NOTE | 2017-05-08 15:44 | NUR ---
Transfer Pt transferred ALS at 1514. Ina aware. Pt stable and able to be titrated down to 8L oxymask with sats 95%. HR stable in 90s aflutter, continued on dilt drip at 10ml/hr with transport, right FA IV stable. BP stable. Report called to [facility] at [facility]. Left lateral thigh dressing changed per wound care instructions prior to transfer. Pain controlled. Remained NPO for possible ARNOLDO per MD recommendations. C collar remained on at transfer. All belongings with pt on transfer.
--- NOTE | 2017-05-09 09:16 | NUR ---
Positive blood cultures faxed to [facility].
== END 2017-05-08 15:54 | disposition short-term general hospital (02) | DRG 871 ==
LOC: SED 11:28 → PCC 18:17
PROVIDERS: ADMIT Internal Medicine; ATTEND Internal Medicine
DX: A41.02 Sepsis due to Methicillin resistant Staphylococcus aureus (principal); J96.21 Acute and chronic respiratory failure with hypoxia; J18.9 Pneumonia, unspecified organism; E87.2 Acidosis; G61.81 Chronic inflammatory demyelinating polyneuritis; R65.20 Severe sepsis without septic shock; I48.2 Chronic atrial fibrillation; J44.9 Chronic obstructive pulmonary disease, unspecified; E11.9 Type 2 diabetes mellitus without complications; I10 Essential (primary) hypertension; N40.0 Benign prostatic hyperplasia without lower urinary tract symptoms; K21.9 Gastro-esophageal reflux disease without esophagitis; I49.5 Sick sinus syndrome; I71.4 Abdominal aortic aneurysm, without rupture; S22.080D Wedge compression fracture of T11-T12 vertebra, subsequent encounter for fracture with routine healing; S12.9XXD Fracture of neck, unspecified, subsequent encounter; V89.2XXD Person injured in unspecified motor-vehicle accident, traffic, subsequent encounter; Z87.891 Personal history of nicotine dependence; Z79.84 Long term (current) use of oral hypoglycemic drugs; Z79.01 Long term (current) use of anticoagulants; Z79.52 Long term (current) use of systemic steroids; Z99.81 Dependence on supplemental oxygen; Z95.0 Presence of cardiac pacemaker